=== PATIENT | female | born 2000 | race Caucasian/White ===

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

== ENCOUNTER 2021-06-14 15:08 | Emergency (ER) | payer OTHER, SELFPAY ==
[2021-06-14 15:19] VITALS: BP 126/73; PULSE 100; RESP 20; O2SAT 100
--- NOTE | 2021-06-14 16:05 | ED.URI ---
HPI - URI/Sore Throat General Chief Complaint: Upper Respiratory Infection Stated Complaint: Headache/Sore Throat Time Seen by Provider: 06/14/21 15:40 Source: patient, RN notes reviewed and old records reviewed Mode of arrival: ambulatory Limitations: no limitations History of Present Illness HPI Narrative: 20 year old female who presents to [facility] care with complaints of sore throat, headaches, sinus drainage, and cough for 10 days duration. Patient has been taking nose spray and has been taking Sudafed. Patient denies any known fever chills or sweats or any acute body aches. Patient states she has some aching pain to her throat rates pain as 5/10, states that her headache pain is 8/10 and throbbing. MD elicited complaint: sore throat and nasal congestion Related Data Allergies Allergy/AdvReac Type Severity Reaction Status Date / Time Sulfa (Sulfonamide Allergy Intermediate Hives Verified 06/14/21 15:29 Antibiotics) latex Allergy Mild RASH Verified 06/14/21 15:29 Review of Systems Review of Systems: CONSTITUTIONAL: Denies fever, chills, or sweats. EYES: Denies visual changes, redness, or discharge. ENT: Positive rhinorrhea, congestion, sore throat, no otalgia. CARDIOVASCULAR: Denies chest pain, palpitations, or edema. RESPIRATORY: positive for cough denies any dyspnea. GASTROINTESTINAL: Denies abdominal pain, nausea, vomiting, or diarrhea. GENITOURINARY: Denies dysuria or hematuria. SKIN: Denies rash or itching. MUSCULOSKELETAL: Denies back pain, joint pain, or myalgia. NEUROLOGIC: Positive for headache,no numbness, or weakness. PSYCHIATRIC: Denies anxiety or depression. All systems reviewed & are unremarkable except as noted in HPI and below PMFSH Past Medical History Medical History (Updated 06/15/21 @ 00:00 by Moses Wren) Acid reflux Anxiety and depression Asthma Surgical History Surgical History (Updated 08/12/20 @ 09:53 by Lyndsey Perez NP) History of appendectomy History of dilatation and curettage Family History Family History Father [id number] deficiency Depression Social History Social History (Updated 08/12/20 @ 10:07 by Lyndsey L. Chris, RN MATERNAL CHILD) Smoking status: Former smoker Tobacco type: cigarettes Additional smoking assessment comments: quit 03/2020 Alcohol intake: former Alcohol use details: social Substance use: never Additional occupation/education comments: [employer] Gender identity (if verbalized by the patient): Female Comments At time of signature, agree with nursing past medical, surgical, social and family history. There is no relevant family history pertinent to the presenting complaint Exam Narrative: GENERAL: Ill-appearing, well-nourished, and in no acute distress. HEAD: Normocephalic, atraumatic. EYES: PERRLA and EOMI. ENT: Nares mild redness, clear rhinorrhea no epistaxis. Mucous membranes moist.TM's normal with good light reflex, throat red with left tonsil swelling NECK: Supple. no lymphadenopathy CHEST: Clear to auscultation. No respiratory distress.SAO2 100% cough non productive HEART: Regular rate and rhythm. No murmur heard. Normal peripheral pulses. ABDOMEN: Soft, nontender, nondistended, normal active bowel sounds. EXTREMITIES: Normal range of motion. No edema. SKIN: Warm, dry, no rash. NEURO: No focal deficits. Alert and oriented x3. Course Course Level of Care: Express Care Visit Vital Signs Vital signs: Vital Signs Pulse Rate 100 06/14/21 15:19 Respiratory Rate 20 06/14/21 15:19 Blood Pressure 126/73 06/14/21 15:19 Pulse Oximetry 100 06/14/21 15:19 Pulse Rate 100 06/14/21 15:19 Respiratory Rate 20 06/14/21 15:19 Blood Pressure 126/73 06/14/21 15:19 Pulse Oximetry 100 06/14/21 15:19 MDM - URI/Sore Throat Differential Diagnosis Differential diagnosis: Likely upper respiratory infection, sinusitis, viral infection, pharyngiti
== END 2021-06-14 16:27 | disposition home or self-care (01) ==
PROVIDERS: Emergency Provider Registered Nurse
DX: J32.9 Chronic sinusitis, unspecified (principal); Z87.891 Personal history of nicotine dependence
CPT/HCPCS: 87081; 87880; 99213; G0463

== ENCOUNTER 2022-01-30 17:27 | Emergency (ER) | payer OTHER, SELFPAY ==
[2022-01-30 18:11] VITALS: BP 127/68; PULSE 100; RESP 16; TEMP 36.8; O2SAT 100
[2022-01-30 20:01] VITALS: BP 119/75; PULSE 85; RESP 16; TEMP 36.7; O2SAT 100
--- NOTE | 2022-01-30 20:21 | ED.HA ---
HPI - Headache General Chief Complaint: Headache Stated Complaint: headache Time Seen by Provider: 01/30/22 19:33 History of Present Illness HPI Narrative: 21-year-old female p/w headache starting this AM after she woke up, steadily worsening, worse with lights/sound, throbbing/pounding. She is also (preg test at her Dr's office) LMP 8 wk ago. Tried tylenol this AM which didn't help much. No focal numbness/weakness. Related Data Allergies Allergy/AdvReac Type Severity Reaction Status Date / Time Sulfa (Sulfonamide Allergy Intermediate Hives Verified 06/14/21 15:29 Antibiotics) latex Allergy Mild RASH Verified 06/14/21 15:29 Review of Systems Review of Systems: CONST: No fever. HEENT: No sore throat C/V: No chest pain RESP: No cough GI: No abdominal pain : No dysuria. M/S: No joint pain. SKIN: No rash. NEURO: [Headache without focal numbness or weakness] PSYCH: Anxious PMFSH Past Medical History Medical History Acid reflux Anxiety and depression Asthma Surgical History Surgical History History of appendectomy History of dilatation and curettage Family History Family History Father [id number] deficiency Depression Social History Social History Smoking status: Former smoker Tobacco type: cigarettes Additional smoking assessment comments: quit 03/2020 Alcohol intake: former Alcohol use details: social Substance use: never Additional occupation/education comments: [employer] Gender identity (if verbalized by the patient): Female Exam Narrative: EXAMINATION OF ORGAN SYSTEMS/BODY AREAS: Constitutional: Vital signs per nursing GENERAL: Tearful and crying HEAD: Normal with no signs of head trauma. EYES: EOMI, conjunctiva normal ENT: Hearing grossly intact LUNGS: Nonlabored breathing. HEART: [Regular rate and rhythm] ABD: No distention EXT: Normal range of motion SKIN: [No rashes or lesions.] NEURO: [Alert and oriented x 3. No focal sensory or strength deficits.] Ambulating with normal steady gait, CN II to XII intact. PSYCH: Tearful affect Course Vital Signs Vital signs: Vital Signs Temperature 98.2 F 01/30/22 18:11 Pulse Rate 100 01/30/22 18:11 Respiratory Rate 16 01/30/22 18:11 Blood Pressure 127/68 01/30/22 18:11 Pulse Oximetry 100 01/30/22 18:11 Oxygen Delivery Room Air 01/30/22 18:11 Temperature 98.0 F 01/30/22 20:01 Pulse Rate 85 01/30/22 20:01 Respiratory Rate 16 01/30/22 20:01 Blood Pressure 119/75 01/30/22 20:01 Pulse Oximetry 100 01/30/22 20:01 Oxygen Delivery Room Air 01/30/22 20:01 MDM - Headache MDM Narrative Medical decision making narrative: 21-year-old female presents to the emergency department for headache. Patient is hemodynamically stable. No focal neurological or cranial nerve deficits on exam. No meningeal signs. The headache was gradual in onset, it is not exertional and does not appear consistent with subarachnoid hemorrhage or intracranial bleeding. No trauma. She was concerned this may be preeclampsia however she is likely only 8 weeks this seems unlikely; BP is also normal here. Patient is given headache cocktail including Reglan, Benadryl, Tylenol.? On reevaluation, the patient feels significantly better with the headache nearly completely resolved. No neurological deficits. Patient is comfortable going home for outpatient follow-up with primary care physician and provided with strict return precautions, especially for worsening headaches, neck pain/stiffness, fever or weakness, numbness/tingling or persistent vomiting. Pulse oximetry interpretation: Not hypoxic. Discharge Plan Discharge Clinical Impression: Migraine Patient Disposition: Home, Self-Care Condition: Impro
[2022-01-30] MEDS: ACETAMINOPHEN 500 MG TABLET 1000 MG PO (20:26)
[2022-01-30] MEDS: diphenhydrAMINE HCl CAP 25 MG CAPSULE PO (20:27)
[2022-01-30] MEDS: METOCLOPRAMIDE HCL INJ 10 MG/2 ML VIAL IM (20:27)
[2022-01-30 21:22] VITALS: BP 118/60; PULSE 70; RESP 16; TEMP 36.8; O2SAT 100
== END 2022-01-30 21:22 | disposition home or self-care (01) ==
PROVIDERS: Emergency Provider Emergency Medicine; PCP Internal Medicine
DX: G43.909 Migraine, unspecified, not intractable, without status migrainosus (principal); K21.9 Gastro-esophageal reflux disease without esophagitis; J45.909 Unspecified asthma, uncomplicated; Z87.891 Personal history of nicotine dependence
CPT/HCPCS: 96372; 99283; A9270; J2765

== ENCOUNTER 2022-06-28 16:52 | Outpatient (RCR) | payer OTHER, SELFPAY ==
[2022-06-28] MEDS: RHO(D) IMMUNE GLOBULIN 300 MCG/2 ML SYRINGE IM (17:33)
== END 2022-09-24 23:59 | disposition home or self-care (01) ==
LOC: ANHLAB 16:52
PROVIDERS: PCP Internal Medicine; Visit Provider Obstetrics & Gynecology
DX: O36.0190 Maternal care for anti-D [Rh] antibodies, unspecified trimester, not applicable or unspecified (principal); Z3A.00 Weeks of gestation of pregnancy not specified
CPT/HCPCS: 36415; 85461; 86850; 86900; 86901; 90384; 96372; J2790

== ENCOUNTER 2022-08-16 16:25 | Observation (INO) | payer OTHER, SELFPAY ==
[2022-08-16 16:40] VITALS: BP 123/74; PULSE 103
[2022-08-16 16:45] VITALS: BP 131/71; PULSE 109
[2022-08-16 16:59] VITALS: BMI 32.5
--- NOTE | 2022-08-16 17:00 | LDADM ---
This patient, Karley Wasserman, was admitted to OB Post [facility] on 08/16/22 at 16:25. Plans for labor, pain management and were discussed with patient. Patient/family oriented to hospital policies and general routines including ID bracelet, bed and alarms, visiting hours, pain management, procedures, bathroom and other care routines, personal items, smoking policy, room service/diet and guest tray routines, infant security routines, and visiting hours. Patient/Family are encouraged to report perceived risks to care and to ask questions if they do not understand what they are told or what they should do. See OBIX for further documentation.
[2022-08-16 17:15] VITALS: BP 130/78; PULSE 113
[2022-08-16 17:20] LABS: Appearance Urine Clear (Clear); Bacteria Urine None Seen /hpf; Bilirubin Urine Negative (Negative); Blood Urine Negative (Negative); Color Urine Yellow (Yellow); Glucose Urine UA Negative (Negative); Ketones Urine Negative (Negative); Leukocyte Esterase Ur Trace LEU/UL (Negative); Nitrate Urine Negative (Negative); Non Pathogenic Casts 0-2; Protein Urine Negative (Negative); RBC Urine 0-2 /hpf (0-2); Specific Grav Ur 1.011 (1.001-1.035); Squamous Epithelial Cell Urine Few /hpf (Few); Urobilinogen Urine 0.2 mg/dL (<2.0); WBC Urine 0-5 /hpf; pH Urine 6.5 (5.0-9.0)
[2022-08-16 17:25] LABS: Add Urine Microscopic? YES
[2022-08-16 17:30] VITALS: BP 126/78; PULSE 112
--- NOTE | 2022-08-16 17:46 | PC.NURSE ---
Patient came in complaining of leaking fluid and contractions with lower back pain. Patient has not taken any medication for pain today. NST reactive, no contractions palpated or picked up by toco. UA results normal, and ROM + was negative. Called MD with results. Orders given for Tylenol and discharge home.
[2022-08-16] MEDS: ACETAMINOPHEN 500 MG TABLET 1000 MG PO (17:55)
--- NOTE | 2022-08-17 13:54 | P.PNOB_ITS ---
OB - Triage/Final Diagnosis Visit Information Reason for evaluation: threatened labor Comments/Additional reasons for admission: I have assessed the risk for this patient, Karley Wasserman, and determined that she would benefit from observation care. Evaluation Laboratory results: Laboratory Tests 08/16/22 16:55 Urine Color Yellow Urine Appearance Clear Urine pH 6.5 Ur Specific [place] 1.011 Urine Protein Negative Urine Glucose (UA) Negative Urine Ketones Negative Ur Blood (Man) Negative Urine Nitrate Negative Urine Bilirubin Negative Urine Urobilinogen 0.2 Leukocyte Esterase Rfl Trace H Urine RBC 0-2 Urine WBC 0-5 Ur Squamous Epith Cells Few Urine Bacteria None seen Urine Casts 0-2 Vital signs: Vital Signs - 24 hr 08/16/22 16:40 08/16/22 16:45 08/16/22 17:15 Pulse Rate 103 H 109 H 113 H Blood Pressure 123/74 131/71 130/78 Oxygen Delivery 08/16/22 17:30 08/16/22 16:59 Pulse Rate 112 H Blood Pressure 126/78 Oxygen Delivery Room Air
== END 2022-08-16 17:58 | disposition home or self-care (01) ==
LOC: ANHOBOP 16:56 → ANHOBPP 16:57
PROVIDERS: Admitting Provider Obstetrics & Gynecology; PCP Internal Medicine; Visit Provider Obstetrics & Gynecology
DX: O47.03 False labor before 37 completed weeks of gestation, third trimester (principal); Z3A.34 34 weeks gestation of pregnancy
CPT/HCPCS: 81001; 84112; A9270; G0378; G0379

== ENCOUNTER 2022-09-20 06:17 | Inpatient (IN) | payer OTHER, SELFPAY ==
[2022-09-20] VITALS (107 sets, daily range): BP systolic 98–163; BP diastolic 58–102; PULSE 54–126; RESP 16; TEMP 36.4–36.9; O2SAT 88–100; BMI 34.3
--- NOTE | 2022-09-20 07:03 | P.HP_ITS ---
H&P: HPI History of Present Illness Date/Time: 09/20/22 07:03 Chief Complaint: Term Narrative: this is a 22-year-old 3 para 1011. Her last menstrual period was 12 25, EDC is 09/27, confirmed by early ultrasound. She presents at 39 weeks gestation with positive group B strep for induction of labor. Her has otherwise been uncomplicated. She does smoke marijuana and that was discussed to stop early in the . [facility] Past Medical History Medical History Acid reflux Anxiety and depression Asthma Surgical History Surgical History History of appendectomy History of dilatation and curettage Family History Family History Father Oquky-[id number] deficiency Depression Social History Social History Smoking status: Former smoker Tobacco type: cigarettes Additional smoking assessment comments: quit 03/2020 Alcohol intake: former Alcohol use details: social Substance use: never Living arrangements: with family Occupation/Education: occupation Additional occupation/education comments: [employer] Gender identity (if verbalized by the patient): Female Meds Home Medications and Allergies Home Medications Medication Instructions Recorded Confirmed Type aspirin 81 mg capsule 81 mg PO DAILY 08/16/22 08/16/22 History venlafaxine 75 mg capsule,extended mg PO 08/16/22 History release 24 hr Allergies Allergy/AdvReac Type Severity Reaction Status Date / Time Sulfa (Sulfonamide Allergy Intermediate Hives Verified 08/16/22 17:10 Antibiotics) latex Allergy Mild RASH Verified 08/16/22 17:10 Exam Const: General: cooperative, healthy appearing and comfortable Nutritional Appearance: average body habitus Orientation/consciousness: oriented to person, oriented to place and oriented to time HENMT: Head: normal to inspection Resp: Effort & Inspection: normal respiratory effort Cardio: Rate: regular rate Rhythm: regular rhythm Heart sounds: S1 normal heart sound present and S2 normal heart sound present GI: Inspection: normal to inspection ( Gravid soft uterus) : External Female Exam: normal external appearance Speculum Exam - Vagina: normal appearance of the vagina Speculum Exam - Cervix: normal appearance of the cervix ( . Attempted a round. FHT is reassuring) Assessment and Plan Assessment and plan (1) Term : Code(s): Z34.90 - Encounter for supervision of normal , unspecified, unspecified trimester Status: Acute (2) Positive testing for group B Streptococcus: Code(s): B95.1 - Streptococcus, group B, as the cause of diseases classified elsewhere Status: Acute Plan medical induction of labor. Group B strep prophylaxis. Spontaneous vaginal delivery expected. She is an epidural candidate
--- NOTE | 2022-09-20 07:43 | PC.NURSE ---
arrives to Ob for elective IOL. Reports good movement, denies leaking of fluid or bleeding, contractions, falls.
[2022-09-20 07:56] LABS: Basophils Percent Auto 0.3 % (0.2-1.2); Eosinophils Absolute Auto 0.1 K/mm3 (0-0.3); Eosinophils Percent Auto 0.9 % (0-4.4); Hematocrit 28.1 % (37.0-47.0); Hemoglobin 8.6 g/dL (12.0-15.0); Immature Granulocyte Absolute 0.15 K/mm3 (0.00-0.031); Immature Granulocyte Percent A 1.1 % (0-0.5); Lymphocytes Percent Auto 17.9 % (18.3-44.2); Mean Corpuscular HGB Conc 30.6 g/dl (32-36); Mean Corpuscular Hemoglobin 25.3 pg (26-34); Mean Corpuscular Volume 82.6 fl (80-100); Mean Platelet Volume 9.7 fl (7.4-10.4); Monocytes Absolute Auto 0.7 K/mm3 (0.1-0.6); Monocytes Percent Auto 5.1 % (2.6-8.5); Neutrophils Absolute Auto 10.4 K/mm3 (1.3-6.7); Neutrophils Percent Auto 74.7 % (45.5-73.1); Platelet Count Result 369 k/mm3 (150-375); Red Cell Distribution Width 16.7 % (11.5-14.5); White Blood Count 13.9 K/mm3 (4.5-10.0)
[2022-09-20] MEDS: LACTATED RINGERS 1,000 ML 125 ML IV CONT ×3 (08:11→18:30)
[2022-09-20] MEDS: OXYTOCIN 30 UNITS/NS 500 ML 30 UNITS/500 ML BAG IV CONT (08:11)
[2022-09-20] MEDS: AMPICILLIN 2 GM/NS 100 ML 2 GM/100 ML BAG IVPB (08:14)
[2022-09-20 08:17] LABS: Amphetamine Screen Urine Negative (Negative); Barbiturate Screen Urine Negative (Negative); Benzodiazepines Screen Urine Negative (Negative); Cannabinoid Screen Urine Positive (Negative); Cocaine Screen Urine Negative (Negative); Methadone Screen Urine Negative (Negative); Opiate Screen Urine Negative (Negative); Phencyclidine Screen Urine Negative (Negative)
[2022-09-20 08:48] LABS: HIV 1/2 Ab P24 Ag Result Negative (Negative)
[2022-09-20 09:04] LABS: Rubella IgG Antibody 19.4 IU/ML
[2022-09-20 09:06] LABS: Hepatitis B Surface Antigen Negative (Negative)
[2022-09-20] MEDS: ACETAMINOPHEN 325 MG TABLET 650 MG PO ×2 (10:10→22:51)
[2022-09-20] MEDS: AMPICILLIN 1 GM/NS 50 ML 1 GM/50 ML BAG IVPB ×2 (11:34→16:28)
--- NOTE | 2022-09-20 12:06 | PM.OBPNLAB ---
Pain Control Date/time seen: 09/20/22 12:06 Pain control: tolerating well Pelvic Exam Dilation (cm): 2 Effacement (%): 50 station: -2 Amniotic membrane status: Leaking Contractions Monitor mode: Internal
[2022-09-20] MEDS: fentaNYL CITRATE INJ (*CRX) 100 MCG/2 ML VIAL 50 MCG IV PUSH ×2 (12:51→14:38)
--- NOTE | 2022-09-20 13:50 | WPDANESEPP ---
Anes - Eval Pre Procedure Procedure: Labor epidural Date/Time: 09/20/22 13:50 Surgeon: Maria Elena Barba Preop Diagnosis: Pain during labor Pre Op Diagnosis: Induction of Labor Patient Data Age: 22 Gender: F Height: 1.63 m Weight: 90.718 kg Last Vital Signs Temp 36.8 C 09/20/22 12:35 Pulse 83 09/20/22 13:37 BP 129/79 09/20/22 13:37 Pulse Ox 98 09/20/22 07:04 O2 Del Method Room Air 09/20/22 08:00 Allergies Allergy/AdvReac Type Severity Reaction Status Date / Time Sulfa (Sulfonamide Allergy Intermediate Hives Verified 08/16/22 17:10 Antibiotics) latex Allergy Mild RASH Verified 08/16/22 17:10 Home Medications Medication Instructions Recorded Confirmed Type aspirin 81 mg capsule 81 mg PO DAILY 08/16/22 09/20/22 History venlafaxine 75 mg capsule,extended 75 mg PO DAILY 08/16/22 09/20/22 History release 24 hr cetirizine 10 mg tablet 10 mg PO PRN PRN Allergy Symptoms 09/20/22 09/20/22 History Laboratory Tests 09/20/22 06:52 WBC 13.9 H K/mm3 (4.5-10.0) RBC 3.40 L M/mm3 (4.2-5.4) Hgb 8.6 L g/dL (12.0-15.0) Hct 28.1 L % (37.0-47.0) MCV 82.6 fl (80-100) MCH 25.3 L pg (26-34) MCHC 30.6 L g/dl (32-36) RDW 16.7 H % (11.5-14.5) Plt Count 369 k/mm3 (150-375) MPV 9.7 fl (7.4-10.4) Immature Gran % (Auto) 1.1 H % (0-0.5) Neut % (Auto) 74.7 H % (45.5-73.1) Lymph % (Auto) 17.9 L % (18.3-44.2) [place] % (Auto) 5.1 % (2.6-8.5) Eos % (Auto) 0.9 % (0-4.4) Baso % (Auto) 0.3 % (0.2-1.2) Lymph # (Auto) 2.50 K/mm3 (0.9-3.2) [place] # (Auto) 0.7 H K/mm3 (0.1-0.6) Eos # (Auto) 0.1 K/mm3 (0-0.3) Baso # (Auto) 0.0 K/mm3 (0.0-0.1) Abs Immat Gran (auto) 0.15 H K/mm3 (0.00-0.031) Absolute Neuts (auto) 10.4 H K/mm3 (1.3-6.7) Absolute Nucleated RBC 0.0 K/mm3 (0.0-0.012) Nucleated RBC % 0.0 % (0.0-0.2) Urine Opiates Screen Negative (Negative) Urine Methadone Screen Negative (Negative) Ur Barbiturates Screen Negative (Negative) Ur Phencyclidine Scrn Negative (Negative) Ur Amphetamine Screen Negative (Negative) U Benzodiazepines Scrn Negative (Negative) Urine Cocaine Screen Negative (Negative) U Cannabinoids Screen Positive A (Negative) RPR Pending Hep Bs Antigen Negative (Negative) HIV 1&2 Ab/P24 Ag 4thGn Negative (Negative) Rubella IgG Antibody 19.4 IU/ML (10 - ) Blood Type A Negative Antibody Screen Negative Patient hx anesthesia problems: none Family hx anesthesia problems: none Results Review: All pre-operative results and documents have been reviewed as part of the pre-operative evaluation. [facility] Past Medical History Medical History Acid reflux Anxiety and depression Asthma Surgical History Surgical History History of appendectomy History of dilatation and curettage Family History Family History Father Smmcb-[id number] deficiency Depression Social History Social History Smoking status: Heavy tobacco smoker Tobacco type: cigarettes Smokeless tobacco user: other Second hand tobacco smoke exposure: No Additional smoking assessment comments: vaping Alcohol intake: former Alcohol use details: social Substance use: current Other substance usage details: vaped Lack of Transportation: No Lack of Food: Never True Current Housing: I Have Housing Concerned About Future Housing: No Difficulty Paying Gas/Electric Bills: No Difficulty Paying for Meds: No Currently Unemployed: YES Education: High School Diploma/GED Difficulty w/ Childcare or Family Care: No Living arrangements: with family Occupa
--- NOTE | 2022-09-20 16:00 | PM.OBPNLAB ---
Pain Control Date/time seen: 09/20/22 16:00 Pain control: tolerating well and epidural Pelvic Exam Dilation (cm): 4 Effacement (%): 50 station: -1 Amniotic membrane status: Leaking Contractions Monitor mode: Internal
[2022-09-20] MEDS: METHYLERGONOVINE MALEATE 0.2 MG/ML VIAL IM (20:16)
--- NOTE | 2022-09-20 20:19 | PM.OBPRVD ---
OB - Delivery Note Procedure Delivery date: 09/20/22 Procedure: mil Events: Positive Group B Strep (GBS) Induction method: AROM Delivery monitor: External FHT and Internal Uterine Route of delivery: Episiotomy description: None Laceration Description: None Quantitative Blood Loss (ml): 260 Anesthesia type: Epidural Disposition: Floor [place] Baby Date of : 09/20/22 Time of : 20:03 Weeks of gestation at delivery: 39 gender: Female Weight (pounds): 6 Weight (ounces): 13 presentation: vertex position: Right Occiput Anterior Placenta delivery description: Spontaneous Cord Vessel Description: 3 Vessels and Clamped/Cut score one minute: 7 score five minutes: 9
--- NOTE | 2022-09-20 20:23 | PM.DS ---
DS: Admitting Diagnosis Discharge Date 09/22/2022 Admitting Diagnosis term /gestational hypertension/positive group B strep DS: Discharge Diagnosis Discharge Diagnosis (1) Positive testing for group B Streptococcus: Code(s): B95.1 - Streptococcus, group B, as the cause of diseases classified elsewhere Status: Acute (2) Term : Code(s): Z34.90 - Encounter for supervision of normal , unspecified, unspecified trimester Status: Acute DS: Summary Hospital Course Reason for hospitalization: patient was admitted for induction of labor. Hospital Course: Patient underwent successful spontaneous vaginal delivery on 09/20 22. She was adequately prophylaxed for group B strep. Her hospital course unremarkable. She remained afebrile. She was up, voiding without difficulty, ambulating, eating regular diet, and generally without complaints. Time Spent with Patient Time attestation: Total time spent providing and/or coordinating discharge services: Exam Const: General: cooperative, healthy appearing and comfortable Nutritional Appearance: average body habitus Orientation/consciousness: oriented to person, oriented to place and oriented to time HENMT: Head: normal to inspection Resp: Effort & Inspection: normal respiratory effort Cardio: Rate: regular rate Rhythm: regular rhythm Heart sounds: S1 normal heart sound present and S2 normal heart sound present GI: Inspection: normal to inspection ( Fundus firm below the umbilicus) DS: Data Data Completed and Pending Labs on day of discharge: Labs from last 24 hours 09/20/22 06:52 WBC 13.9 H RBC 3.40 L Hgb 8.6 L Hct 28.1 L MCV 82.6 MCH 25.3 L MCHC 30.6 L RDW 16.7 H Plt Count 369 MPV 9.7 Immature Gran % (Auto) 1.1 H Neut % (Auto) 74.7 H Lymph % (Auto) 17.9 L [place] % (Auto) 5.1 Eos % (Auto) 0.9 Baso % (Auto) 0.3 Lymph # (Auto) 2.50 [place] # (Auto) 0.7 H Eos # (Auto) 0.1 Baso # (Auto) 0.0 Abs Immat Gran (auto) 0.15 H Absolute Neuts (auto) 10.4 H Absolute Nucleated RBC 0.0 Nucleated RBC % 0.0 Urine Opiates Screen Negative Urine Methadone Screen Negative Ur Barbiturates Screen Negative Ur Phencyclidine Scrn Negative Ur Amphetamine Screen Negative U Benzodiazepines Scrn Negative Urine Cocaine Screen Negative U Cannabinoids Screen Positive A RPR Pending Hep Bs Antigen Negative HIV 1&2 Ab/P24 Ag 4thGn Negative Rubella IgG Antibody 19.4 Blood Type A Negative Antibody Screen Negative Discharge Plan Discharge Attending physician on discharge: Castro Mar Discharging Clinician: Castro Mar Patient Disposition: Home, Self-Care Activity: may shower, no straining and pelvic rest Diet: heart healthy Wound Care Instructions: follow printed instructions Patient Instructions: Antibiotic Form Stand Alone Forms: General Discharge Information Follow-up/Referrals: Castro Mar MD [Physician] - Discharge Medications: Continued venlafaxine 75 mg capsule,extended release 24hr 75 mg PO DAILY aspirin 81 mg Capsule 81 mg PO DAILY cetirizine 10 mg tablet 10 mg PO PRN PRN (Reason: Allergy Symptoms) Date of admission: 09/20/22 06:17 Primary Care Provider: Corby,Sam Cerna Admitting Provider: Castro Mar Attending physician on admission: Castro Mar Condition: Stable
[2022-09-20] MEDS: OXYTOCIN 30 UNITS/NS 500 ML 30 UNITS/500 ML BAG 125 UNITS IV CONT (20:34)
[2022-09-20] MEDS: ONDANSETRON INJ 4 MG/2 ML VIAL IV PUSH (21:37)
[2022-09-20] MEDS: IBUPROFEN 600 MG TABLET PO (22:52)
--- NOTE | 2022-09-20 23:12 | OBPPTRN ---
Patient transferred to post room #286 via wheelchair. Support person present. Oriented to unit, room, information board, rooming in, admission packet and security measures. Patient verbalizes understanding.
[2022-09-21 04:00] VITALS: BP 117/66; PULSE 80; RESP 16; TEMP 36.9; O2SAT 100
[2022-09-21 04:06] LABS: Hematocrit 29.1 % (37.0-47.0); Hemoglobin 8.9 g/dL (12.0-15.0)
[2022-09-21] MEDS: IBUPROFEN 600 MG TABLET PO ×3 (05:15→18:24)
[2022-09-21 07:50] VITALS: BP 111/63; PULSE 73; RESP 18; TEMP 36.8; O2SAT 98
--- NOTE | 2022-09-21 10:16 | WPDANLDPN2 ---
Anes-Prog Note L&D Date/Time: 09/21/22 10:16 Comfortable throughout: labor and delivery Neuraxial method: epidural Epidural/Spinal procedure site: clean & non-tender Neuro status: Neuro function grossly intact. Cardiovascular status: normal Respiratory status: normal Airway patency: baseline Mental status: baseline Post-Op hydration status: normal Vital Signs: Last Vital Signs Temp 36.8 C 09/21/22 07:50 Pulse 73 09/21/22 07:50 Resp 18 09/21/22 07:50 BP 111/63 09/21/22 07:50 Pulse Ox 98 09/21/22 07:50 O2 Del Method Room Air 09/21/22 04:00 Pain score (VAS): 2/10 I/O: Intake & Output 09/20/22 09/21/22 09/21/22 23:59 07:59 15:59 Intake Total 1000 Output Total 400 Balance 600 Post-procedural complaints: none Patient feedback: Patient satisfied with anesthetic care.
--- NOTE | 2022-09-21 10:27 | WPDANLDPN2 ---
Anes-Prog Note L&D Date/Time: 09/21/22 10:27 Comfortable throughout: labor and delivery Neuraxial method: epidural Epidural/Spinal procedure site: clean & non-tender Neuro status: Neuro function grossly intact. Cardiovascular status: normal Respiratory status: normal Airway patency: baseline Mental status: baseline Post-Op hydration status: normal Vital Signs: Last Vital Signs Temp 36.8 C 09/21/22 07:50 Pulse 73 09/21/22 07:50 Resp 18 09/21/22 07:50 BP 111/63 09/21/22 07:50 Pulse Ox 98 09/21/22 07:50 O2 Del Method Room Air 09/21/22 04:00 Pain score (VAS): 0 I/O: Intake & Output 09/20/22 09/21/22 09/21/22 23:59 07:59 15:59 Intake Total 1000 Output Total 400 Balance 600 Post-procedural complaints: none Patient feedback: Patient satisfied with anesthetic care.
[2022-09-21 11:02] LABS: Rapid Plasma Reagin Non-Reactive (NonReactive)
[2022-09-21] MEDS: MULTIVIT/MIN/PREN/FOL AC/IRON TABLET 1 TAB PO (11:31)
[2022-09-21] MEDS: DOCUSATE SODIUM 100 MG CAPSULE PO ×2 (11:31→16:21)
[2022-09-21] MEDS: TETANUS,DIPHTHERIA,AC PERTUSSIS ADULT (0.5 ML) BOOSTRIX IM (11:32)
[2022-09-21] MEDS: POLYSACCHARIDE IRON COMPLEX 150 MG CAPSULE PO ×2 (11:32→16:21)
[2022-09-21 12:10] VITALS: BP 129/82; PULSE 78; RESP 16; TEMP 36.6; O2SAT 97
[2022-09-21] MEDS: ACETAMINOPHEN 325 MG TABLET 650 MG PO (13:10)
[2022-09-21] MEDS: RHO(D) IMMUNE GLOBULIN 300 MCG/2 ML SYRINGE IM (13:46)
--- NOTE | 2022-09-21 14:23 | PC.NURSE ---
[id number] Introductions were made, then consulted with patient to assess needs related to . Mother led the conversation with her?plans to feed?her and the?experience so far. Mother works well with her infant with encouragement and education. Encouraged understanding of the benefits of skin to skin (demonstrating unwrapping infant and placing upright on her chest), stimulating with massage touch, changing positions to encourage wakefulness, how to watch for early feeding cues, responsive feeding, feeding on demand (aiming for 8-12 times in 24 hours, about every 2-3 hours), milk production, building/maintaining a milk supply, duration of feeding, signs of adequate intake/output and how to record on the feeding sheet. Reviewed positioning and ear, shoulder, hip alignment, supporting the breast to facilitate a deep latch, asymmetrical latch (off-center), leading with the chin with a big, open, wide gape and body close to mother. Nipple shield provided after delivery for the earlier feedings to mother due to infant not latching. Reviewed good handwashing, cleaning the nipple shield and application. Discussed with mom the nipple shield precautions, possible complications associated with the risks and benefits. Reviewed practicing with a nipple shield, then without and how to protect the milk supply and production. Reviewed the importance of hand expression, nipple stimulation and initiating a pumping schedule if continues to nurse with the shield. Several attempts were made to stimulate for wakefulness, [id number], massage touch, position change and latching with, then without the nipple shield. Infant latched optimally to the right breast in football position. Education given to mother of how to visualize suck/swallow demonstrating drinking at the breast. was able to maintain latch without discomfort to mother. Nipple care reviewed with optimal latch and good positioning. Reviewed good handwashing when or touching the breast/nipples to prevent infection. Resources used to facilitate learning were used with the tool. Mother voiced understanding of skin to skin, stimulating with massage touch, responsive feedings, hand expressed colostrum, talking to to encourage if it has been 2 -2.5 hours since the start of the last , to call if does not latch, or if there is discomfort with . Mother voiced understanding of information, demonstrated learning and will call if there is a request for assistance.
[2022-09-21 20:00] VITALS: BP 112/65; PULSE 81; RESP 16; TEMP 36.8; O2SAT 100
--- NOTE | 2022-09-22 06:35 | PM.OBPNVD ---
OB - PN: Subj Subjective Date/time seen: 09/22/22 06:35 Patient comments: no complaints and pain well controlled baby status: doing well OB - PN: Obj Data Labs 09/21/22 03:03 Labs: Laboratory Results - last 24 hr 09/20/22 09/21/22 06:52 03:03 RPR Non-reactive Blood Type A Negative Antibody Screen TNP Screen Negative Baby's Blood Type A pos Baby's ДМИТРИЙ Negative Doses of RhIg Required 1 OB - PN A/P Plan day: 2 Plan: routine care, discharge home and follow up 6 weeks Time Spent With Patient Time: Total time spent is greater than 50% in coordination of care (as documented) at patient's floor/unit and/or counseling patient: Time with patient: less than 15 minutes Exam Const: General: cooperative, healthy appearing and comfortable Nutritional Appearance: average body habitus Orientation/consciousness: oriented to person, oriented to place and oriented to time HENMT: Head: normal to inspection Resp: Effort & Inspection: normal respiratory effort Cardio: Rate: regular rate Rhythm: regular rhythm Heart sounds: S1 normal heart sound present and S2 normal heart sound present GI: Inspection: normal to inspection
[2022-09-22 09:00] VITALS: BP 127/95; PULSE 78; RESP 16; TEMP 36.7
[2022-09-22] MEDS: POLYSACCHARIDE IRON COMPLEX 150 MG CAPSULE PO (09:57)
[2022-09-22] MEDS: DOCUSATE SODIUM 100 MG CAPSULE PO (09:57)
[2022-09-22] MEDS: MULTIVIT/MIN/PREN/FOL AC/IRON TABLET 1 TAB PO (09:57)
[2022-09-24 10:35] VITALS: BP 127/83; PULSE 84; RESP 18; TEMP 37.1; O2SAT 99
== END 2022-09-22 12:15 | disposition home or self-care (01) | DRG 560 ==
LOC: ANHLDR 06:26 → ANHOB2 23:14
PROVIDERS: Admitting Provider Obstetrics & Gynecology; PCP Internal Medicine; Visit Provider Obstetrics & Gynecology
DX: O99.824 Streptococcus B carrier state complicating childbirth (principal); Z37.0 Single live birth; Z3A.39 39 weeks gestation of pregnancy
CPT/HCPCS: 36415; 80307; 85014; 85018; 85025; 85461; 86592; 86703; 86762; 86850; 86900; 86901; 87340; 90384; 90715; A9270; G0432; J0290; J2210; J2405; J2590; J2790; J2795; J3010; J7120

== ENCOUNTER 2022-12-06 13:06 | Emergency (ER) | payer OTHER, SELFPAY ==
[2022-12-06 13:22] VITALS: BP 129/76; PULSE 92; RESP 18; TEMP 36.3; O2SAT 100
--- NOTE | 2022-12-06 14:16 | ED.SKABFB ---
HPI - Skin/Abscess/Foreign Bdy General Chief complaint: Skin/Abscess/Foreign Body Stated complaint: cyst inside right leg Time Seen by Provider: 12/06/22 14:16 Source: patient, RN notes reviewed and old records reviewed Mode of arrival: ambulatory Limitations: no limitations History of Present Illness HPI narrative: 22-year-old female presents to the [facility] with complaints of an abscess to the right inner upper thigh. States she also has some on her buttock. Was diagnosed with hidradenitis suppurativa during . States that she gave in September. Has not followed up for these lesions. Related Data Allergies Allergy/AdvReac Type Severity Reaction Status Date / Time Sulfa (Sulfonamide Allergy Intermediate Hives Verified 08/16/22 17:10 Antibiotics) latex Allergy Mild RASH Verified 08/16/22 17:10 Review of Systems Review of Systems: All systems reviewed & are unremarkable except as noted in HPI and below Constitutional: Constitutional: Reports no additional constitutional complaints Eyes: Eyes: Reports no additional eye complaints ENT: Reports system reviewed and no additional complaints, except as documented Cardiovascular: Cardiovascular: Reports no additional cardiovascular complaints, Denies chest pain and Denies dyspnea Respiratory: Respiratory: Reports no additional respiratory complaints, Denies chest congestion, Denies cough and Denies dyspnea Gastrointestinal: Gastrointestinal: Reports no additional gastrointestinal complaints, Denies abdominal pain, Denies nausea and Denies vomiting Musculoskeletal: Musculoskeletal: Reports no additional musculoskeletal complaints Integumentary/Breasts: Skin/Breast: Reports as per HPI, Reports erythema, Reports skin pain, Reports skin swelling and Reports sores Neurologic: Reports system reviewed and no additional complaints, except as documented Psychiatric: Psychiatric: Reports no additional psychiatric complaints Allergic/Immunologic: Allergic/Immunologic: Reports no additional allergic/immunologic complaints [facility] Past Medical History Medical History Acid reflux Anxiety and depression Asthma Surgical History Surgical History History of appendectomy History of dilatation and curettage Family History Family History Father Yradh-1-quejljwxgzl deficiency Depression Social History Social History Smoking status: Heavy tobacco smoker Tobacco type: cigarettes Smokeless tobacco user: other Second hand tobacco smoke exposure: No Additional smoking assessment comments: vaping Alcohol intake: former Alcohol use details: social Substance use: current Other substance usage details: vaped Lack of Transportation: No Lack of Food: Never True Current Housing: I Have Housing Concerned About Future Housing: No Difficulty Paying Gas/Electric Bills: No Difficulty Paying for Meds: No Currently Unemployed: YES Education: High School Diploma/GED Difficulty w/ Childcare or Family Care: No Living arrangements: with family Occupation/Education: occupation Additional occupation/education comments: paxton Gender identity (if verbalized by the patient): Female Spiritual care concerns: No Comments At the time of my signature, I reviewed and agree with the nursing past medical, surgical, social, and family history. There is no relevant family history pertinent to the patient complaint. Exam Const: General: cooperative, healthy appearing, comfortable, no acute distress, well developed, alert and well nourished Nutritional Appearance: well nourished and obese Orientation/consciousness: patient oriented x3 Limitations: no limitations HENMT: Head: normal to inspection Ears: hearing grossly normal bilateral
== END 2022-12-06 15:04 | disposition home or self-care (01) ==
PROVIDERS: Emergency Provider Nurse Practitioner; PCP Internal Medicine
DX: L02.415 Cutaneous abscess of right lower limb (principal); L03.115 Cellulitis of right lower limb; F17.210 Nicotine dependence, cigarettes, uncomplicated; F17.290 Nicotine dependence, other tobacco product, uncomplicated; K21.9 Gastro-esophageal reflux disease without esophagitis; J45.909 Unspecified asthma, uncomplicated
CPT/HCPCS: 10060; 81025; 87070; 87075; 87076; 87205; 99213; G0463

== ENCOUNTER 2024-08-24 21:00 | Emergency (ER) | payer OTHER, SELFPAY ==
--- NOTE | ~2024-08-24 | XR_ITS ---
EXAMINATION: XR chest 2V Exam Date/Time: 08/24/2024 21:37 CDT HISTORY: Palpitations Comparison: None. RESULT: Lines, tubes, and devices: None. Lungs and pleura: Clear. Cardiomediastinal silhouette: Normal. Other: No acute osseous or upper abdominal finding. IMPRESSION: No acute cardiopulmonary process. Reviewed, dictated and finalized at location K.
--- NOTE | 2024-08-24 21:01 | ECG_ITS ---
Test Date: 2024-08-24 21:13:02 Measurements Intervals [place] Rate: 102 P: 52 PA: 104 QRS: 4 QRSD: 91 T: 29 QT: 327 QTc: 426 Interpretive Statements SINUS TACHYCARDIA WITH SHORT PA INTERVAL OTHERWISE NORMAL ECG No previous ECG available for comparison Electronically Signed On 08-25-2024 10:09:27 CDT by John Ribeiro M.D.
--- OUTSIDE RECORDS SUMMARY | 2024-08-24 21:03 | XMS_ITS | Clinical Summary ---
Author Organization [facility] Address [address] [place] [address] Phone Care Team Providers Care Bi Technical Lead Name Role Phone Sam Tavarez MD Primary Care Provider [phone] Allergies Active Allergy Reactions Criticality Noted Date Comments Latex Rash 07/12/2021 Sulfa Antibiotics Unknown 07/12/2021 Medications traZODone (DESYREL) 50 MG Tablet Take 0.5 Tablets by mouth nightly. 15 Tablet 2 08/05/2023 Active buPROPion (WELLBUTRIN) 150 MG XL tablet TAKE 1 TABLET BY MOUTH EVERY DAY IN THE MORNING 30 Tablet 09/20/2023 Active ondansetron (ZOFRAN-ODT) 4 MG TABLET DISPERSIBLE Take 1 Tablet by mouth every 8 hours as needed for Nausea - 1st line. 10 Tablet 04/15/2024 Active Active Problems Problem Noted Date Diagnosed Date Irritable bowel syndrome with diarrhea Primary insomnia 08/05/2023 Recurrent boils 08/05/2023 Dysthymia 08/05/2023 Immunizations Immunization Administration Dates Next Due Td Vaccine (preservative free) 04/15/2024 Family History Medical History Relation Name Comments No Known Problems Father No Known Problems Mother No Known Problems Sister 1 No Known Problems Sister 2 Relation Name Status Comments Father Alive Mother Alive Sister 1 Alive Sister 2 Alive Social History Tobacco Use Types Packs/Day Years Used Date Smoking Tobacco: Never Passive Smoke Exposure: Never Smokeless Tobacco: Never Tobacco Cessation:Counseling Given: No Alcohol Use Standard Drinks/Week Comments Never 0 (1 standard drink = 0.6 oz pur e alcohol) [facility] Utilities Answer Date Recorded In the past 12 months has e electric, gas, oil, or water company threatened to shut off services in your home? Patient declined 07/24/2023 Social Connection and Isolation Panel Answer Date Recorded In a typical week, how many times do you talk on the phone with family, friends, or neighbors? More than three times a week 07/24/2023 How often do you get togethe r with friends or relatives? Twice a week 07/24/2023 How often do you attend chur ch or latter day services? 1 to 4 times per year 07/24/2023 Do you belong to any clubs o r organizations such as voodoo groups, unions, fraternal or athletic groups, or school groups? No 07/24/2023 How often do you attend meet ings of the clubs or organizations you belong to? Patient declined 07/24/2023 Are you , , di vorced, , never , or living with a partner? Never 07/24/2023 AUDIT-C Answer Date Recorded Q1: How often do you have a drink containing alc ohol? Monthly or less 07/24/2023 Q2: How many drinks containi ng alcohol do you have on a typical day when you are drinking? 3 or 4 07/24/2023 Q3: How often do you have si x or more drinks on one occasion? Never 07/24/2023 Overall Financial Resource Strain (CARDIA) Answe r Date Recorded How hard is it for you to pa y for the very basics like food, housing, medical care, and heating? Not very hard 07/24/2023 PHQ-2 Answer Date Recorded Total Score - Questions 1-9 0 01/11 [facility] of Occupat ional Health - Occupational Stress Questionnaire Answer Date Recorded Do you feel stress - tense, restless, nervous, or anxious, or unable to sleep at night because your mind is troubled all the time - these days? To some extent 07/24/2023 Exercise Vital Sign Answer Date Recorde d On average, how many days pe r week do you engage in moderate to strenuous exercise (like a brisk walk)? 5 days 07/24/2023 On average, how many minutes do you engage in exercise at this level? 60 min 07/24/2023 Hunger Vital Sign Answer Date Recorded Within the past 12 months, y ou worried that your food would run out before you got the money to buy more. Never true 07/24/19 Within the past 12 months, t he food you bought just didn't last and you didn't have money to get more. Never true 07/24/2023 PRAPARE - Transportation Answer Date Re corded In the past 12 months, has l ack of transportation kept you from medical appointments or from getting medications? Patient declined 07/24/2023 In the past 12 months, has l ack of transportation kept you from meetings, work, or from getting things needed for daily living? Yes 07/24/2023 Housing Stability Vital Sign Answer Rashard e Recorded In the last 12 months, was t here a time when you were not able to pay the mortgage or rent on time? Patient declined 07/24/19 In the past 12 months, how m any times have you moved where you were living? 2 07/24/2023 At any time in the past 12 m [facility], were you homeless or living in a prison (including now)? No 07/24/2023 Sexually Active Control Partners Comments Yes Comments Unknown Sex and Gender Information Value Date Recorded Sex Assigned at Not on file Legal Sex Female 11:00 AM CDT Gender Identity Not on file Sexual Orientation Not on file Last Filed Vital Signs Vital Sign Reading Time Taken Comments Blood Pressure 120/65 04/15/2024 1:32 PM HARP REGULATOR Pulse 82 04/15/2024 1:32 PM HARP REGULATOR Temperature 37.2 C (99 F) 04/15/2024 1:32 PM HARP REGULATOR Respiratory Rate 16 04/15/2024 1:32 PM HARP REGULATOR Oxygen Saturation 100% 04/15/2024 1:32 PM HARP REGULATOR Inhaled Oxygen Concentration - - Weight 81.6 kg (180 lb) 04/15/2024 12:17 PM HARP REGULATOR Height 165.1 cm (5' 5) 04/15/2024 12:17 PM HARP REGULATOR Body Mass Index 29.95 04/15/2024 12:17 PM HARP REGULATOR Plan of Treatment Health Maintenance Due Date Last Done Comments Hepatitis C Virus (HCV) Screening 2001 Meningococcal B Immunization (1 of 2 - Standard) 2017 Pap Smear 2022 SARS-COV-2 Immunization ( season) 2023 Influenza Immunization (#1) 10/12/202403/2017, 12/20/2016, 11/24/2015, Additional history exists Respiratory Syncytial Virus (RSV) Immunization (Adult) (1 - 1-dose 75+ series) 2076 Hepatitis B Immunization Completed 003, 2001, 2001 Pneumococcal Immunization Combined Aged Out 06/23/2002, 01/05/2002, 2001, Additional history exists No longer eligible based on patient's age to complete this topic Hepatitis A Immunization Discontinued 007, 05/08/2006, 06/29/2005, Additional history exists Measles Mumps Rubella (MMR) Immunization Discontinued 05/24/2006, 05/24/2006, 06/23/2002 Polio (IPV) Immunization Discontinued 007, 01/06/2003, 01/05/2002, Additional history exists Varicella Immunization Discontinued 7, 05/24/2006, 06/29/2005 Human Papillomavirus (HPV) Immunization Completed 03/12/2013, 10/31/2012, 09/05/2012 Meningococcal Immunization (ACWY) Completed 09/30/2017, 09/05/2012 TdaP Immunization Completed 09/21/2022, , 09/05/2012 DTaP/Tdap/Td Immunization Discontinued 2024, 09/21/2022, 12/26/2020, Additional history exists Rotavirus Immunization Aged Out No lo nger eligible based on patient's age to complete this topic Insurance MEDICAID [facility] MEDICAID [facility] [employer] Care Teams Bi Technical Lead Relationship Specialty Start Date End Date Sam Tavarez MD [address] [place] [address] PCP - General Internal Medicine 03/07/22
--- OUTSIDE RECORDS SUMMARY | 2024-08-24 21:03 | XMS_ITS | Clinical Summary ---
Author Organization [facility] Address [address] [place] [address] Care Team Providers Care Street Photographer Name Role Phone Sam Tavarez MD Primary Care Provider [phone] Allergies Active Allergy Reactions Criticality Noted Date Comments Latex Rash Medium 02/28/2011 Mom has the latex allergy Sulfa (Sulfonamide Antibiotics) Hives,Rash Medium 10/19/2020 Medications vit [id number]-dh a 27mg iron- 800 mcg-250 mg capsule Take by mouth Active pyridoxine (VITAMIN B-6) 50 mg tablet Take 1 tablet (50 mg total) by mouth daily Active aspirin 81 mg chewable tablet Take 1 tablet (81 mg total) by mouth daily Active Active Problems Problem Noted Date Diagnosed Date GBS bacteriuria 04/24/2022 Supervision of other normal , antepartu m 03/23/2022 History of pre-eclampsia 03/23/2022 Migraine with aura and witho ut status migrainosus, not intractable 09/04/2021 Anxiety disorder 09/15/2020 Immunizations Immunization Administration Dates Next Due Tdap 12/26/2020 Surgical History Surgery Date Site/Laterality Comments UPPER GASTROINTESTINAL ENDOSCOPY 02/11/2018 - 02/10/2019 DILATION AND CURETTAGE OF UTERUS APPENDECTOMY 02/11/2007 - 02/11/2008 Medical History Medical History Date Comments Anxiety Asthma No inhaler use f or greater then 1 year Hip dysplasia Snapping hip syndrome Depression Pre-eclampsia Family History Medical History Relation Name Comments Diabetes Father Heart disease Maternal Grandfather Hypertension Maternal Grandfather Breast cancer Neg Hx Colon cancer Neg Hx Ovarian cancer Neg Hx Uterine cancer Neg Hx Relation Name Status Comments Father Alive Maternal Grandfather Mother Alive Social History Tobacco Use Types Packs/Day Years Used Date Smoking Tobacco: Former Cigarettes Smokeless Tobacco: Never Tobacco Cessation:Counseling Given: Not Answered Alcohol Use Standard Drinks/Week Comments Not Currently 0 (1 standard drink = 0.6 oz pur e alcohol) Social Connection and Isolat ion Panel [NHANES] Answer Date Recorded In a typical week, how many times do you talk on the phone with family, friends, or neighbors? More than three times a week 06/07/2022 How often do you get togethe r with friends or relatives? More than three times a week 06/07/2022 How often do you attend chur ch or roman catholic services? Never 06/07/2022 Do you belong to any clubs o r organizations such as alevism groups, unions, fraternal or athletic groups, or school groups? No 06/07/2022 How often do you attend meet ings of the clubs or organizations you belong to? Never 06/07/2022 Marital Status Not on file 06/07/2022 AUDIT-C Answer Date Recorded Q1: How often do you have a drink containing alcohol? Never 06/07/2022 Q2: How many drinks containi ng alcohol do you have on a typical day when you are drinking? Patient does not drink Q3: How often do you have si x or more drinks on one occasion? Never 06/07/2022 Overall Financial Resource Strain (CARDIA) Answe r Date Recorded How hard is it for you to pa y for the very basics like food, housing, medical care, and heating? Not very hard 06/07/2022 PHQ-2 Answer Date Recorded PHQ-2 Total Score (If total score is 3 or more points, staff should administer the PHQ-9) 2 06/07/2022 [facility] of Occupat ional Health - Occupational Stress Questionnaire Answer Date Recorded Do you feel stress - tense, restless, nervous, or anxious, or unable to sleep at night because your mind is troubled all the time - these days? Very much 06/07/2022 Exercise Vital Sign Answer Date Recorde d On average, how many days pe r week do you engage in moderate to strenuous exercise (like a brisk walk)? 3 days 06/07/2022 On average, how many minutes do you engage in exercise at this level? 30 min 06/07/2022 Hunger Vital Sign Answer Date Recorded Within the past 12 months, y ou worried that your food would run out before you got the money to buy more. Never true 06/08/19 23 Within the past 12 months, t he food you bought just didn't last and you didn't have money to get more. Never true 06/07/2022 PRAPARE - Transportation Answer Date Re corded In the past 12 months, has l ack of transportation kept you from medical appointments or from getting medications? No 05/13 In the past 12 months, has l ack of transportation kept you from meetings, work, or from getting things needed for daily living? No 06/07/2022 Housing Stability Vital Sign Answer Rashard e Recorded In the last 12 months, was t here a time when you were not able to pay the mortgage or rent on time? No 06/07/2022 In the last 12 months, how many places have you lived? 4 06/07/2022 In the last 12 months, was t here a time when you did not have a steady place to sleep or slept in a care home (including now)? No 06/07/2022 [place] Depression Scale Answer Date Recorded [place] Depression Scale Total 16 04/13/2021 The thought of harming myself has occurred to me . Never 04/13/2021 Personal Safety Answer Date Recorded Getting School Help Needed Not on file 08/12 Comments No Sex and Gender Information Value Date Recorded Sex Assigned at Not on file Legal Sex Female 6:53 PM FASHION DESIGN PROFESSOR Gender Identity Not on file Sexual Orientation Not on file Obstetrics History Para Term AB IAB SAB Ectopic Multiple Livin g Live Births 3 1 1 1 1 0 1 1 Date Outcome GA Total Labor Labor/2nd/3rd Weight Sex Type Anes PTL Sheila A1 A5 Name Clin 2019 SAB D&C 2020 Term 39w 6d 12h 32m 11h 07m/1h 21m/0h 04m 3.29 kg (7 lb 4.1 oz) M Vag-S pont Epidur al N Livin g 6 8 LIVIN GRABIELON ,WILLARDL Spenser Dennison MD Complications:Pre eclampsia Delivery Location:[facility] Main C ampus ([facility]) Last Filed Vital Signs Vital Sign Reading Time Taken Comments Blood Pressure 124/64 07/25/2022 11:45 AM CDT Pulse 109 07/25/2022 11:45 AM CDT Temperature 36.3 C (97.4 F) 07/25/2022 11:45 AM CDT Respiratory Rate 16 07/25/2022 11:45 AM CDT Oxygen Saturation 97% 07/25/2022 11:45 AM CDT Inhaled Oxygen Concentration - - Weight 83.9 kg (185 lb) 07/25/2022 11:45 AM CDT Height 162.6 cm (5' 4) 07/25/2022 11:45 AM CDT Body Mass Index 31.76 07/25/2022 11:45 AM CDT Plan of Treatment Health Maintenance Due Date Last Done Comments Cervical Cancer Screening 2001 Meningococcal B Vaccine (1 o f 2 - Standard) 2017 Regular Well Visit/Exam 18-64 04/13/2022 04/13/2021 Chlamydia and Gonorrhea (GC/ CT) Screening 03/23/2023 03/23/2022, 09/04/2021, 05/03/2021 Depression Screening 06/08/2023 06/07/2022, 06/07/2022, 04/13/2021 Influenza Vaccine (#1) 2024 8, 12/20/2016, 11/24/2015, Additional history exists DTaP/Tdap/Td Vaccine (8 - Td or Tdap) 12/26/2030 12/26/2020, 09/05/2012, 05/24/2006, Additional history exists Hepatitis B Screening Completed 03/27/2002 , 2001, 2001 Pneumococcal vaccine <65 Completed 003, 01/05/2002, 2001, Additional history exists Varicella Vaccines Completed 05/24/2006, 0 05/24/2006, 06/29/2005, Additional history exists HPV Vaccines Completed 03/12/2013, 10/13, 09/05/2012 Hepatitis C Screening Completed 03/23/2022, 022 Procedures Procedure Name Priority Date/Time Associated Diagnosis Comments HEPATITIS C ANTIBODY Routine 03/23/2022 11:32 AM FASHION DESIGN PROFESSOR Encounter for supervision of other normal in first trimester N. GONORRHOEAE/C. TRACHOMATIS AMPLIFICATION Routine 03/23/2022 11:14 AM FASHION DESIGN PROFESSOR Encounter for supervision of other normal in first trimester Screening for STD (sexually transmitted disease) from Last 3 Months or Most Recently Relevant to Health Maintenance Results * Hepatitis C antibody (03/23/2022 11:32 AM FASHION DESIGN PROFESSOR) Hep C Ab Nonreactive Nonreactive DOMO FRAZIER Comment: Interpretive Data Nonreactive: Antibodies to HCV not detected. Does NOT exclude the possibility of recent exposure to HCV. Equivocal: Equivocal for HCV antibodies. Supplemental molecular testing will be automatically performed to determine infection status in accordance with current CDC screening recommendations. Reactive: Positive for HCV antibodies. This may represent current or past HCV infection. Supplemental molecular testing will be automatically performed to determine current infection status in accordance with current CDC screening recommendations. Interpretive data was last revised on 2019. Blood 03/23/2022 11:3 2 AM FASHION DESIGN PROFESSOR 03/23/2022 3:36 PM FASHION DESIGN PROFESSOR us Kiki RODRIGUEZ LAB MICROBIOLOGY - GENERAL OR DERABLES Final Result DOMO FRAZIER [id number] [facility] Department [place] [address] * N. gonorrhoeae/C. trachomatis Amplification Vaginal (03/23/2022 11:14 AM FASHION DESIGN PROFESSOR) Pathologist [facility] C. trachomatis Not Detected Not Detected DOMO FRAZIER Comment:Testing performed by : [address] [address] N. gonorrhoeae Not Detected Not Detected DOMO FRAZIER Comment: Interpretive Data Testing performed by the [facility]. This assay detects Chlamydia trachomatis and Neisseria gonorrhoeae by nucleic acid amplification testing (NAAT). This test is approved by the [place] Food and Drug Administration and the performance characteristics have been verified by the laboratory. The performance characteristics of this test have not been evaluated in individuals less than 14 years of age. Current Interpretive Data was last revised on 2019. Testing performed by: [address], [place]., [address] Vaginal (None) 03/23/2022 11 :14 AM FASHION DESIGN PROFESSOR 03/23/2022 2:02 PM FASHION DESIGN PROFESSOR Kiki Roberto CNM LAB MICROBIOLOGY - GENERAL OR DERABLES Final Result Performing Organization Address City/State/[facility] Co pr Phone Number DOMO [address] [facility] Department [place] [address] from Last 3 Months or Most Recently Relevant to Health Maintenance Insurance [facility] [employer] BETTER TH [place] Advance Directives For more information, please contact: [phone] * Full Code (Latest Code Status on File) Date Activated Date Inactivated Comments 12/25/2020 12:56 PM 12/28/2020 7:47 PM * Full Code Date Activated Date Inactivated Comments 12/25/2020 12:56 PM 12/25/2020 12:56 PM * Full Code Date Activated Date Inactivated Comments 12/25/2020 12:23 PM 12/25/2020 12:56 PM * Full Code Date Activated Date Inactivated Comments 12/19/2020 7:24 PM 12/22/2020 12:10 PM Full CPR i n case of cardiopulmonary arrest Care Teams Street Photographer Relationship Specialty Start Date End Date Sam Tavarez MD [address] [place] [address] PCP - General Internal Medicine 01/04/22
--- OUTSIDE RECORDS SUMMARY | 2024-08-24 21:03 | XMS_ITS | Clinical Summary ---
Author Organization [facility] Address [address] [place] [address] Care Team Providers Care Property Portfolio Officer Name Role Phone Loco Cardoza DO Primary Care Provider Source Comments [facility],non-owned Affiliates and Associated Physician Practices is amultiple site organization consisting of ambulatory clinics and hospital sitesin [place], [place], [place] and [place]. This disclosure is being madepursuant to the Care Everywhere program and may not contain all information available regarding this patient. Last updated 17.[facility] Allergies Active Allergy Reactions Criticality Noted Date Comments Latex Rash Medium 02/28/2011 Mom has the latex allergy Medications * Be aware that medications may not be up to date on this document. Alwaysverify current medications with the patient. albuterol HFA (PROVENTIL;VENT OCTAVIANO;PROAIR) 108 (90 BASE) MCG/ACT inhaler Inhale 2 Puffs by mouth every 4 hours as needed for Wheezing or Cough OK TO SUBSTITUTE ANY BRAND. 1 Inhaler 0 6 Active albuterol HFA (PROVENTIL;VENT OCTAVIANO;PROAIR) 108 (90 BASE) MCG/ACT inhaler Inhale 2 puffs by mouth 6 Active escitalopram (LEXAPRO) 10 MG tablet TAKE 1 TABLET BY MOUTH ONCE DAILY 30 tablet 9 Active Active Problems Problem Noted Date Diagnosed Date Depression with anxiety 08/11/2018 Mild intermittent asthma without complication Acne vulgaris 07/19/2016 Overview (08/21/2016): premenarchal onset age 13; tretinoin 0.025%, Clindagel, BP wash x 6 mo in past with improvement 07/19/16 mod inflammatory>comedonal with violaceous discoloration off tx; check urine hCG; start OCP, restart tretinoin 0.025%, erythro samara, BP wash daily Gastroesophageal reflux 09/08/2012 BMI (body mass index), pedia tric, 85% to less than 95% for age 0709/08/2012 Resolved Problems Problem Noted Date Diagnosed Date Resolved Date Insurance coverage problems 07/19/2016 09/30/2017 Overview (08/21/2016): [place] with very limited acne formulary and step edit requirements 07/19/16 discussed limitations Sunburn, blistering 07/19/2016 10/01/19 18 Overview (07/19/2016): FST 1 07/19/16 discussed importance of broad spectrum sunscreen use Non-intractable vomiting with nausea 09/30/2017 Immunizations Immunization Administration Dates Next Due DTaP VACCINE IM (6wk-6yrs) 05/24/2006,,01/05/2002,10/20,2001 FLU VACCINE TRI IIV3 SPLIT P F IM (FLUVIRIN) 10/31/2012 HEP A PEDS 2 DOSE 05/08/2006,06/29/2005 HEP B VACCINE, PED/ADOL 03/27/2002,2001, HIB BOOSTER 01/06/2003, 2,2001,08/18 Human Papilloma Virus Toma valent Vaccine 03/12/2013,10/31/2012,09/05/2012 INFLUENZA A [id number] VACCINE 12/31/2008 INFLUENZA VACCINE, QUADR. (F LUZONE; FLULAVAL; FLUARIX; AFLURIA QUADRIVALENT; 6MO+), 0.5 ML (IIV4) 12/13/2017,12/20/2016,11/24/2015,12/24 Influenza Nasal 11/02/2011, 1,01/16/2010,12/16 SANDHYA VACCINE QUAD LAIV4 PF NASAL 11/20/2013 MENINGOCOCCAL ACWY (MCV4P) VAC IM 09/30/2017, MMR 05/24/2006,06/23/2002 PNEUMOCOCCAL CONJ, PEDS 06/23/2002,01/05,2001,08/18 POLIO IPV 05/24/2006, 3,2001,08/18 TDAP (7yrs+) 09/05/2012 VARICELLA 05/24/2006,06/29/2005 Family History Medical History Relation Name Comments Allergies Father emphysema Alpha 1 antitrypsin deficiency Father emphysema Asthma Father emphysema Eczema Father emphysema Hyperlipidemia Father emphysema Diabetes - Type 2 Maternal Grandmother Thyroid Disease Maternal Grandmother Diabetes - Type 2 Paternal Grandfather Hyperlipidemia Paternal Grandmother Hypertension Paternal Grandmother Relation Name Status Comments Father emphysema Maternal Grandmother Paternal Grandfather Paternal Grandmother Social History Tobacco Use Types Packs/Day Years Used Date Smoking Tobacco: Never Smokeless Tobacco: Never Alcohol Use Standard Drinks/Week Comments No 0 (1 standard drink = 0.6 oz pur e alcohol) Comments No Sex and Gender Information Value Date Recorded Sex Assigned at Not on file Legal Sex Female 5:41 AM MACHINE SILVER STRIPPER Gender Identity Not on file Sexual Orientation Not on file Last Filed Vital Signs Vital Sign Reading Time Taken Comments Blood Pressure 134/87 09/30/2018 2:12 PM CDT Pulse 89 09/30/2018 2:12 PM CDT Temperature 36.2 C (97.1 F) 09/30/2018 2:12 PM CDT Respiratory Rate 32 02/19/2017 11:15 AM MACHINE SILVER STRIPPER Oxygen Saturation 99% 02/19/2017 10:43 AM MACHINE SILVER STRIPPER Inhaled Oxygen Concentration 100% 02/19/2017 1 0:43 AM MACHINE SILVER STRIPPER Weight 70.8 kg (156 lb) 09/30/2018 2:12 PM CDT Height 165.1 cm (5' 5) 09/30/2018 2:12 PM CDT Body Mass Index 25.96 09/30/2018 2:12 PM CDT Plan of Treatment Health Maintenance Due Date Last Done Comments PNEUMOCOCCAL VACCINE (1 of 1 - PPSV23, PCV20, or PCV21) 06/18/2007 06/23/2002, 01/05/2002, 2001, Additional history exists HIV SCREENING 2016 MENINGOCOCCAL (Group B) VACC INE SHARED DECISION-MAKING (1 of 2 - Standard) 2017 HEPATITIS C SCREENING 06/13/2019 PAP SMEAR 2022 DTAP/TDAP/TD VACCINES (7 - T d or Tdap) 09/05/2022 09/05/2012, 05/24/2006, 01/06/2003, Additional history exists CHLAMYDIA/GONORRHEA SCREENING 03/23/2023 03/23/2022 COVID-19 VACCINE (1 - 2023-2 5 season) 2023 DEPRESSION SCREENING 02/12/2024 INFLUENZA VACCINE (#1) 2024 8, 12/20/2016, 11/24/2015, Additional history exists ZOSTER VACCINE (1 of 2) 06/18/2051 HEPATITIS B VACCINE Completed 03/27/2002, 2001, 2001 HIB VACCINE Completed 01/06/2003, 12/13, 2001, Additional history exists HPV VACCINE Completed 03/12/2013, 10/13, 09/05/2012 MENINGOCOCCAL GROUPS A/C/Y/W VACCINE Completed 09/30/2017, 09/05/2012 Goals Goal Patient Goal Type Associated Problems Recent Progress Patient-Stated? Author Use safety retraint in car Lifestyle On track( 019 9:09 AM MACHINE SILVER STRIPPER) Lyndsey Fraire RN Insurance MEDICAID - OUT OF STATE [facility] MEDICAID - [facility] MEDICAID - [place] * Guarantor: KARLEY WASSERMAN Account Type Relation to Patient Date of Phone Billing Address Personal/Family [address] [place] [id number] [place] [address] Care Teams Property Portfolio Officer Relationship Specialty Start Date End Date Loco Cardoza DO PCP - General 06/11/20
--- OUTSIDE RECORDS SUMMARY | 2024-08-24 21:03 | XMS_ITS | Referral Summary ---
Author Organization [facility] Address [address] [place] [address] Care Team Providers Care Hand Icer Name Role Phone Sam Tavarez MD Primary Care Provider +1- [phone] Allergies Active Allergy Reactions Criticality Noted Date Comments Latex Rash Medium 02/28/2011 Mom has the latex allergy Sulfa (Sulfonamide Antibiotics) Hives,Rash Medium 10/19/2020 Medications vit 81-qxzf-yicov-dh a 27mg iron- 800 mcg-250 mg capsule [...] Immunization Administration Dates Next Due Tdap 12/26/2020 Social History Tobacco Use Types Packs/Day Years [...] often do you attend chur ch or synagogue services? Never 06/07/2022 Do you belong to any clubs o r organizations such as latter day groups, unions, fraternal or athletic groups, or [...] staff should administer the PHQ-9) 2 06/07/2022 [facility] of Occupat ional Health - Occupational Stress [...] place to sleep or slept in a usp (including now)? No 06/07/2022 [place] Depression Scale Answer Date Recorded [place] Depression Scale Total 16 04/13/2021 The thought of harming myself has occurred to me . Never 04/13/2021 Personal Safety Answer Date Recorded Getting School Help Needed Not on file 08/12 Comments No Sex and Gender Information Value Date Recorded Sex Assigned at Not on file Legal Sex Female 6:53 PM ELECTRICAL HIGH TENSION TESTER Gender Identity Not on file Sexual Orientation [...] 07/25/2022 11:45 AM CDT Plan of Treatment Not on file Procedures Procedure Name Priority Date/Time Associated Diagnosis Comments HEPATITIS C ANTIBODY Routine 03/23/2022 11:32 AM ELECTRICAL HIGH TENSION TESTER Encounter for supervision of other normal in first trimester N. GONORRHOEAE/C. TRACHOMATIS AMPLIFICATION Routine 03/23/2022 11:14 AM ELECTRICAL HIGH TENSION TESTER Encounter for supervision of other normal in first trimester Screening for STD (sexually transmitted disease) from Last 3 Months or Most Recently Relevant to Health Maintenance Results * Hepatitis C antibody (03/23/2022 11:32 AM ELECTRICAL HIGH TENSION TESTER) Hep C Ab Nonreactive Nonreactive DOMO FRAZIER [...] on 2019. Blood 03/23/2022 11:3 2 AM ELECTRICAL HIGH TENSION TESTER 03/23/2022 3:36 PM ELECTRICAL HIGH TENSION TESTER Kiki Roberto CNM LAB MICROBIOLOGY - GENERAL OR DERABLES Final Result DOMO [address] [facility] Department of Laboratories [place], [place] [id number] * N. gonorrhoeae/C. trachomatis Amplification Vaginal (03/23/2022 11:14 AM ELECTRICAL HIGH TENSION TESTER) C. trachomatis Not Detected Not Detected DOMO FRAZIER Comment:Testing performed by : [facility], [address] [place] [address]., [address] N. gonorrhoeae Not Detected Not Detected DOMO FRAZIER Comment: Interpretive Data Testing performed by the [facility]. This assay detects Chlamydia trachomatis and Neisseria gonorrhoeae by nucleic acid amplification testing (NAAT). This test is approved by the [facility] Food and Drug Administration and the performance characteristics have been verified by the laboratory. The performance characteristics of this test have not been evaluated in individuals less than 14 years of age. Current Interpretive Data was last revised on 2019. Testing performed by: [address] [address] Vaginal (None) 03/23/2022 11 :14 AM ELECTRICAL HIGH TENSION TESTER 03/23/2022 2:02 PM ELECTRICAL HIGH TENSION TESTER Kiki Roberto CNM LAB MICROBIOLOGY - GENERAL OR DERABLES Final Result [facility] [address] [facility] Department [place] [address] from Last 3 Months or Most Recently Relevant to Health Maintenance Insurance [facility] [employer] [facility] Advance Directives For more information, please contact: [phone] * Full Code (Latest Code Status on [...] n case of cardiopulmonary arrest Care Teams Hand Icer Relationship Specialty Start Date End Date Sam Tavarez MD [address] [place] [address] PCP - General Internal Medicine 01/04/22
[2024-08-24 21:06] VITALS: BP 130/77; PULSE 102; RESP 18; TEMP 36.6; O2SAT 99
[2024-08-24 21:26] LABS: Hematocrit 37.0 % (37.0-47.0); Hemoglobin 12.0 g/dL (12.0-15.0); Immature Granulocyte Percent A 0.5 % (0-0.5); Lymphocytes Absolute Auto 2.63 K/mm3 (0.9-3.2); Mean Corpuscular HGB Conc 32.4 g/dl (32-36); Mean Corpuscular Hemoglobin 27.5 pg (26-34); Mean Corpuscular Volume 84.7 fl (80-100); Nucleated Red Blood Cells Absolute Auto 0.000 K/mm3 (0.0-0.012); Nucleated Red Blood Cells Perc 0.0 % (0.0-0.2); Platelet Count Result 318 k/mm3 (150-375); Red Blood Count 4.37 M/mm3 (4.2-5.4); White Blood Count 16.9 K/mm3 (4.5-10.0)
[2024-08-24 21:38] LABS: Alanine Aminotransferase 51 U/L (6-35); Albumin Level 4.4 g/dL (3.5-5.1); Alkaline Phosphatase 117 U/L (38-126); Anion Gap 13 mmol/L (4-12); Aspartate Amino Transferase 39 U/L (14-36); Bilirubin,Total 0.2 mg/dL (0.2-1.3); Blood Urea Nitrogen 9 mg/dL (7-17); Calcium 9.6 mg/dL (8.4-10.2); Carbon Dioxide 20 mmol/L (22-30); Chloride 103 mmol/L (98-107); Estimated CRCL calculation 165 ml/min; Estimated Glomerular Filt Rate > 60; Glucose 94 mg/dL (65-110); Lipase 92 U/L (23-300); Potassium 3.9 mmol/L (3.4-5.0); Sodium 136 mmol/L (137-145); Total Protein 8.3 g/dL (6.3-8.2)
[2024-08-24 21:43] LABS: INR 0.9; Prothrombin Time 12.3 Seconds (11.1-14.7)
[2024-08-24 21:44] LABS: Partial Thromboplastin Time 27.1 Seconds (22.3-36.8)
[2024-08-24 21:48] LABS: Troponin I < 0.012 ng/mL (0.000-0.034)
[2024-08-24 22:33] LABS: BEDSIDEPREGUCG Positive (Negative)
[2024-08-25] MEDS: SODIUM CHLORIDE 0.9% IV 1,000 ML 999 ML IV CONT (00:10)
--- NOTE | 2024-08-25 00:20 | ECG_ITS ---
Test Date: 2024-08-25 00:22:10 Measurements Intervals [place] Rate: 99 P: 40 NM: 142 QRS: 1 QRSD: 93 T: 18 QT: 346 QTc: 445 Interpretive Statements SINUS RHYTHM NORMAL ELECTROCARDIOGRAM Compared to ECG 08/24/2024 21:13:02 NO SIGNIFICANT CHANGE Electronically Signed On 08-25-2024 10:12:02 CDT by John Ribeiro M.D.
[2024-08-25 00:31] LABS: Add Urine Microscopic? YES; Appearance Urine Clear (Clear); Glucose Urine UA Negative (Negative); Leukocyte Esterase Ur Trace LEU/UL (Negative); Nitrate Urine Negative (Negative); Non Pathogenic Casts 0-2; Specific Grav Ur 1.013 (1.001-1.035)
--- OUTSIDE RECORDS SUMMARY | 2024-08-25 00:47 | XMS_ITS | Clinical Summary ---
Author Organization [facility] Address [address] [place] [address] Care Team Providers Care Data Coder Operator Name Role Phone Sam Tavarez MD Primary Care Provider +1- [phone] Allergies Active Allergy Reactions Criticality Noted Date Comments Latex Rash Medium 02/28/2011 Mom has the latex allergy Sulfa (Sulfonamide Antibiotics) Hives,Rash Medium 10/19/2020 Medications vit 80-tief-zcymx-dh a 27mg iron- 800 mcg-250 mg capsule [...] often do you attend chur ch or taoism services? Never 06/07/2022 Do you belong to any clubs o r organizations such as jew groups, unions, fraternal or athletic groups, or [...] staff should administer the PHQ-9) 2 06/07/2022 [facility] of Occupat ional Health - Occupational [...] place to sleep or slept in a assisted (including now)? No 06/07/2022 [place] Depression Scale Answer Date Recorded [place] Depression Scale Total 16 04/13/2021 The thought of harming myself has occurred to me . Never 04/13/2021 Personal Safety Answer Date Recorded Getting School Help Needed Not on file 08/12 Comments No Sex and Gender Information Value Date Recorded Sex Assigned at Not on file Legal Sex Female 6:53 PM SAFETY AND SECURITY OFFICER Gender Identity Not on file Sexual Orientation [...] ,WILLARDL Spenser Dennison MD Complications:Pre eclampsia Delivery Location:[facility] Main C ampus ([facility]) Last Filed Vital Signs Vital [...] HEPATITIS C ANTIBODY Routine 03/23/2022 11:32 AM SAFETY AND SECURITY OFFICER Encounter for supervision of other normal in first trimester N. GONORRHOEAE/C. TRACHOMATIS AMPLIFICATION Routine 03/23/2022 11:14 AM SAFETY AND SECURITY OFFICER Encounter for supervision of other normal in first trimester Screening for STD (sexually transmitted disease) from Last 3 Months or Most Recently Relevant to Health Maintenance Results * Hepatitis C antibody (03/23/2022 11:32 AM SAFETY AND SECURITY OFFICER) Hep C Ab Nonreactive Nonreactive DOMO FRAZIER [...] on 2019. Blood 03/23/2022 11:3 2 AM SAFETY AND SECURITY OFFICER 03/23/2022 3:36 PM SAFETY AND SECURITY OFFICER us Kiki RODRIGUEZ LAB MICROBIOLOGY - GENERAL OR DERABLES Final Result DOMO FRAZIER [address] [facility] Department [place] [address] * N. gonorrhoeae/C. trachomatis Amplification Vaginal (03/23/2022 11:14 AM SAFETY AND SECURITY OFFICER) Pathologist [facility] C. trachomatis Not Detected Not Detected DOMO FRAZIER Comment:Testing performed by : [address] [address] N. gonorrhoeae Not Detected Not Detected DOMO FRAZIER Comment: Interpretive Data Testing performed by the [facility]. This assay detects Chlamydia trachomatis [...] last revised on 2019. Testing performed by: [address], [place]., [address] Vaginal (None) 03/23/2022 11 :14 AM SAFETY AND SECURITY OFFICER 03/23/2022 2:02 PM SAFETY AND SECURITY OFFICER Kiki Roberto CNM LAB MICROBIOLOGY - GENERAL OR DERABLES Final Result Performing Organization Address City/State/[facility] Co va Phone Number DOMO [address] [facility] Department [place] [address] from Last 3 Months or Most Recently Relevant to Health Maintenance Insurance [facility] [employer] BETTER [place] Advance Directives For more information, please contact: [phone] * Full Code (Latest Code Status on [...] n case of cardiopulmonary arrest Care Teams Data Coder Operator Relationship Specialty Start Date End Date Sam Tavarez MD [address] [place] [address] PCP - General Internal Medicine 01/04/22
--- OUTSIDE RECORDS SUMMARY | 2024-08-25 00:47 | XMS_ITS | Clinical Summary ---
Author Organization [facility] Address [address] [place] [address] Care Team Providers Care Teacher Aide Name Role Phone Loco Cardoza DO Primary Care Provider Source Comments [facility],non-owned Affiliates and Associated Physician Practices is amultiple site organization consisting of ambulatory clinics and hospital sitesin [place], [place], [place] and [place]. This disclosure is being madepursuant to the Care Everywhere program and may not contain all information available regarding this patient. Last updated 17.[facility] Allergies Active Allergy Reactions Criticality Noted Date [...] Insurance coverage problems 07/19/2016 09/30/2017 Overview (08/21/2016): [place] with very limited acne formulary and step [...] Virus Toma valent Vaccine 03/12/2013,10/31/2012,09/05/2012 INFLUENZA A [id number] VACCINE 12/31/2008 INFLUENZA VACCINE, QUADR. (F LUZONE; [...] on file Legal Sex Female 5:41 AM PHOTO OFFSET PRINTER Gender Identity Not on file Sexual Orientation Not on file Last Filed Vital Signs Vital Sign Reading Time Taken Comments Blood Pressure 134/87 09/30/2018 2:12 PM CDT Pulse 89 09/30/2018 2:12 PM CDT Temperature 36.2 C (97.1 F) 09/30/2018 2:12 PM CDT Respiratory Rate 32 02/19/2017 11:15 AM PHOTO OFFSET PRINTER Oxygen Saturation 99% 02/19/2017 10:43 AM PHOTO OFFSET PRINTER Inhaled Oxygen Concentration 100% 02/19/2017 1 0:43 AM PHOTO OFFSET PRINTER Weight 70.8 kg (156 lb) 09/30/2018 2:12 [...] car Lifestyle On track( 019 9:09 AM PHOTO OFFSET PRINTER) Lyndsey Fraire RN Insurance MEDICAID - OUT OF STATE [facility] MEDICAID - [facility] MEDICAID - [place] * Guarantor: KARLEY WASSERMAN Account Type Relation to Patient Date of Phone Billing Address Personal/Family [address] [place] [id number] [place] [address] Care Teams Teacher Aide Relationship Specialty Start Date End Date Loco Cardoza DO PCP - General 06/11/20
--- OUTSIDE RECORDS SUMMARY | 2024-08-25 00:47 | XMS_ITS | Clinical Summary ---
Author Organization [facility] Address [address] [place] [address] Phone Care Team Providers Care Freight Claim Investigator Name Role Phone Sam Tavarez MD Primary Care Provider [phone] [phone] Allergies Active Allergy Reactions Criticality Noted Date [...] drink = 0.6 oz pur e alcohol) [facility] Utilities Answer Date Recorded In the past [...] often do you attend chur ch or protestant services? 1 to 4 times per year 07/24/2023 Do you belong to any clubs o r organizations such as moravian groups, unions, fraternal or athletic groups, or [...] Total Score - Questions 1-9 0 01/11 [facility] [place] of Occupat ional Health - Occupational Stress [...] any time in the past 12 m [facility], were you homeless or living in a usp (including now)? No 07/24/2023 Sexually Active Control Partners Comments Yes Comments Unknown Sex and Gender Information Value Date Recorded Sex Assigned at Not on file Legal Sex Female 11:00 AM CDT Gender Identity Not on file Sexual Orientation Not on file Last Filed Vital Signs Vital Sign Reading Time Taken Comments Blood Pressure 120/65 04/15/2024 1:32 PM TONGUE PRESSER Pulse 82 04/15/2024 1:32 PM TONGUE PRESSER Temperature 37.2 C (99 F) 04/15/2024 1:32 PM TONGUE PRESSER Respiratory Rate 16 04/15/2024 1:32 PM TONGUE PRESSER Oxygen Saturation 100% 04/15/2024 1:32 PM TONGUE PRESSER Inhaled Oxygen Concentration - - Weight 81.6 kg (180 lb) 04/15/2024 12:17 PM TONGUE PRESSER Height 165.1 cm (5' 5) 04/15/2024 12:17 PM TONGUE PRESSER Body Mass Index 29.95 04/15/2024 12:17 PM TONGUE PRESSER Plan of Treatment Health Maintenance Due Date [...] age to complete this topic Insurance MEDICAID [facility] MEDICAID [facility] Care Teams Freight Claim Investigator Relationship Specialty Start Date End Date Sam Tavarez MD [address] [place] [address] PCP - General Internal Medicine 03/07/22
--- OUTSIDE RECORDS SUMMARY | 2024-08-25 00:47 | XMS_ITS | Referral Summary ---
Author Organization [facility] Address [address] [place] [address] Care Team Providers Care Desizing Machine Offbearer Name Role Phone Sam Tavarez MD Primary Care Provider +1- [phone] Allergies Active Allergy Reactions Criticality Noted Date Comments Latex Rash Medium 02/28/2011 Mom has the latex allergy Sulfa (Sulfonamide Antibiotics) Hives,Rash Medium 10/19/2020 Medications vit 36-bwcq-niffr-dh a 27mg iron- 800 mcg-250 mg capsule [...] often do you attend chur ch or evangelical services? Never 06/07/2022 Do you belong to any clubs o r organizations such as restorationism groups, unions, fraternal or athletic groups, or [...] staff should administer the PHQ-9) 2 06/07/2022 [facility] of Occupat ional Health - [...] place to sleep or slept in a mcfp (including now)? No 06/07/2022 [place] Depression Scale Answer Date Recorded [place] Depression Scale Total 16 04/13/2021 The thought of harming myself has occurred to me . Never 04/13/2021 Personal Safety Answer Date Recorded Getting School Help Needed Not on file 08/12 Comments No Sex and Gender Information Value Date Recorded Sex Assigned at Not on file Legal Sex Female 6:53 PM AIRFIELD OPERATIONS SPECIALIST Gender Identity Not on file Sexual Orientation [...] HEPATITIS C ANTIBODY Routine 03/23/2022 11:32 AM AIRFIELD OPERATIONS SPECIALIST Encounter for supervision of other normal in first trimester N. GONORRHOEAE/C. TRACHOMATIS AMPLIFICATION Routine 03/23/2022 11:14 AM AIRFIELD OPERATIONS SPECIALIST Encounter for supervision of other normal in first trimester Screening for STD (sexually transmitted disease) from Last 3 Months or Most Recently Relevant to Health Maintenance Results * Hepatitis C antibody (03/23/2022 11:32 AM AIRFIELD OPERATIONS SPECIALIST) Hep C Ab Nonreactive Nonreactive DOMO FRAZIER [...] on 2019. Blood 03/23/2022 11:3 2 AM AIRFIELD OPERATIONS SPECIALIST 03/23/2022 3:36 PM AIRFIELD OPERATIONS SPECIALIST Kiki Roberto CNM LAB MICROBIOLOGY - GENERAL OR DERABLES Final Result DOMO [address] [facility] Department of Laboratories [place], [place] [id number] * N. gonorrhoeae/C. trachomatis Amplification Vaginal (03/23/2022 11:14 AM AIRFIELD OPERATIONS SPECIALIST) C. trachomatis Not Detected Not Detected DOMO FRAZIER Comment:Testing performed by : [facility], [address] [place] [address]., [address] N. gonorrhoeae Not Detected Not Detected DOMO FRAZIER Comment: Interpretive Data Testing performed by the [facility]. This assay detects Chlamydia trachomatis and Neisseria gonorrhoeae by nucleic acid amplification testing (NAAT). This test is approved by the [facility] Food and Drug Administration and the performance characteristics have been verified by the laboratory. The performance characteristics of this test have not been evaluated in individuals less than 14 years of age. Current Interpretive Data was last revised on 2019. Testing performed by: [address] [address] Vaginal (None) 03/23/2022 11 :14 AM AIRFIELD OPERATIONS SPECIALIST 03/23/2022 2:02 PM AIRFIELD OPERATIONS SPECIALIST Kiki Roberto CNM LAB MICROBIOLOGY - GENERAL OR DERABLES Final Result [facility] [address] [facility] Department [place] [address] from Last 3 Months or Most Recently Relevant to Health Maintenance Insurance [facility] AETNA BETTER [facility] Advance Directives For more information, please contact: [phone] * Full Code (Latest Code Status on [...] n case of cardiopulmonary arrest Care Teams Desizing Machine Offbearer Relationship Specialty Start Date End Date Sam Tavarez MD [address] [place] [address] PCP - General Internal Medicine 01/04/22
[2024-08-25 00:55] LABS: Troponin I < 0.012 ng/mL (0.000-0.034)
--- NOTE | 2024-08-25 01:04 | ED_ITS ---
HPI - Arrhythmia/Palpitations General Chief Complaint: Arrhythmia/Palpitations Stated Complaint: Palpitations- 14 weeks preg-hx preeclampsia Time Seen by Provider: 08/24/24 23:46 History of Present Illness HPI narrative: Patient is a 34-year-old female who presents the emergency department this evening complaining of heart palpitations for the past 3 days. Patient states that she can feel that her heart is beating out of her chest. States that she has been drinking plenty of fluids as far as she is aware. She is approximately 14 weeks . Had an ultrasound for this already at 10 weeks which was normal. Follows up with Dr. Jimenez a. This is her 3rd . Denies any vaginal bleeding or spotting. No reported fevers or chills. Noticed symptoms or concerns at this time. Related Data Allergies Allergy/AdvReac Type Severity Reaction Status Date / Time Sulfa (Sulfonamide Allergy Intermediate Hives Verified 08/16/22 17:10 Antibiotics) latex Allergy Mild RASH Verified 08/16/22 17:10 Review of Systems 2 Review of Systems: All systems are reviewed and are negative unless stated otherwise in the HPI. [facility] Past Medical History Medical History Anxiety and depression Acid reflux Asthma Surgical History Surgical History History of dilatation and curettage History of appendectomy Family History Family History Father [id number]-1-[id number] deficiency Depression Social History Social History Smoking status: Heavy tobacco smoker Tobacco type: cigarettes Smokeless tobacco user: other Second hand tobacco smoke exposure: No Additional smoking assessment comments: vaping Alcohol intake: former Alcohol use details: social Substance use: current Other substance usage details: vaped Lack of Transportation: No Lack of Food: Never True Current Housing: I Have Housing Concerned About Future Housing: No Difficulty Paying Gas/Electric Bills: No Difficulty Paying for Meds: No Currently Unemployed: YES Education: High School Diploma/GED Difficulty w/ Childcare or Family Care: No Living arrangements: with family Occupation/Education: occupation Additional occupation/education comments: [employer] Gender identity (if verbalized by the patient): Female Spiritual care concerns: No Exam 2 Narrative: General: Alert, awake, afebrile, in no acute distress. HEENT: PERRL, no rhinorrhea, no post nasal drip, oropharynx clear. Neck: Trachea midline, no JVD, no lymphadenopathy. Cardiovascular: Tachycardic with regular rhythm, no murmurs, rubs or gallops, no peripheral edema. Respiratory: Clear to auscultation bilaterally, no tachypnea, no wheezing, no rhonchi, no rubs, no respiratory distress. Abdomen: Soft, nontender, nondistended, no rebound, no guarding, no peritoneal signs. Musculoskeletal: No joint swelling or deformity, normal muscle tone. Skin: No rashes or petechia, no signs of infection. Psychiatric: Alert and oriented, normal behavior and judgment for situation. Neurological: Alert and oriented to person, place, and time. Follows all commands. No focal deficits, speech is clear and fluent. Course Vital Signs Vital signs: Vital Signs Temperature 97.9 F 08/24/24 21:06 Pulse Rate 102 H 08/24/24 21:06 Respiratory Rate 18 08/24/24 21:06 Blood Pressure 130/77 08/24/24 21:06 Pulse Oximetry 99 08/24/24 21:06 Oxygen Delivery Room Air 08/24/24 21:06 Temperature 97.9 F 08/24/24 21:06 Pulse Rate 102 H 08/24/24 21:06 Respiratory Rate 18 08/24/24 21:06 Blood Pressure 130/77 08/24/24 21:06 Pulse Oximetry 99 08/24/24 21:06 Oxygen Delivery Room Air 08/24/24 21:06 MDM - Arrhythmia/Palpitations MDM Narrative Medical decision making narrative: The patient was evaluated by myself in the emergency department. History is obtained from patient who is an independent historian and physical exam was performed. External medical records were reviewed at this time. IV was established and pertinent tests were ordered. Patient was administered 1 L IV fluid bolus with normal saline. EKG was obtained which revealed sinus tachycardia rate of 102 beats per minute. No ST changes, T wave inversions or evidence of acute ischemia. EKG was independently interpreted by me and is currently pending official cardiology read. Laboratory results obtained revealing a leukocytosis of 13 otherwise unremarkable. Urinalysis unremarkable. Imaging studies obtained included CXR which was independently interpreted by me revealing no acute cardiopulmonary process, which is pending final radiology interpretation. Differential diagnosis considerations include dehydration, electrolyte derangements, arrhythmia, related changes, acute viral syndrome. Comorbidities impacting this visit include current first-trimester . I have evaluated and discussed social determinants of health with the patient that could potentially impact subsequent diagnosis and treatment plans. On repeat assessment of the patient, reevaluation revealed that the patient is doing well and is in no acute distress. Patient symptoms have improved since she arrived to our emergency department. Repeat vital signs were all reviewed and noted to be stable. Differential diagnosis and treatment plan were discussed with the patient at bedside. Patient agrees with discussion and after shared medical decision making agrees with discharge. All questions were answered to the patient's satisfaction. Patient will follow up with her OB in 3-5 days. Was also per the Cardiology referral instructed to call to set up a follow-up appoint regarding her palpitations as he may need a Holter monitor/echocardiogram. Patient was provided with strict return precautions and instructed to return to the emergency department if any new or worsening symptoms develop. The patient was discharged in stable condition. Lab Data 08/24/24 21:20 08/24/24 21:20 Labs: Lab Results 08/24/24 08/24/24 08/25/24 Range/Units 21:20 22:32 00:02 WBC 16.9 H (4.5-10.0) K/mm3 RBC 4.37 (4.2-5.4) M/mm3 Hgb 12.0 D (12.0-15.0) g/dL Hct 37.0 (37.0-47.0) % MCV 84.7 (80-100) fl MCH 27.5 (26-34) pg MCHC 32.4 (32-36) g/dl RDW 14.8 H (11.5-14.5) % Plt Count 318 (150-375) k/mm3 MPV 8.9 (7.4-10.4) fl Immature Gran % (Auto) 0.5 (0-0.5) % Neut % (Auto) 77.4 H (45.5-73.1) % Lymph % (Auto) 15.6 L (18.3-44.2) % [place] % (Auto) 4.7 (2.6-8.5) % Eos % (Auto) 1.5 (0-4.4) % Baso % (Auto) 0.3 (0.2-1.2) % Lymph # (Auto) 2.63 (0.9-3.2) K/mm3 [place] # (Auto) 0.8 H (0.1-0.6) K/mm3 Eos # (Auto) 0.3 (0-0.3) K/mm3 Baso # (Auto) 0.1 (0.0-0.1) K/mm3 Abs Immat Gran (auto) 0.08 H (0.00-0.031) K/mm3 Absolute Neuts (auto) 13.1 H (1.3-6.7) K/mm3 Absolute Nucleated RBC 0.000 (0.0-0.012) K/mm3 Nucleated RBC % 0.0 (0.0-0.2) % PT 12.3 (11.1-14.7) Seconds INR 0.9 APTT 27.1 (22.3-36.8) Seconds Sodium 136 L (137-145) mmol/L Potassium 3.9 (3.4-5.0) mmol/L Chloride 103 (98-107) mmol/L Carbon Dioxide 20 L (22-30) mmol/L Anion Gap 13 H (4-12) mmol/L BUN 9 (7-17) mg/dL Creatinine 0.47 L (0.7-1.0) mg/dL Estim Creat Clear Calc 165 ml/min Estimated GFR > 60 (59 - ) Glucose 94 (65-110) mg/dL Calcium 9.6 (8.4-10.2) mg/dL Total Bilirubin 0.2 (0.2-1.3) mg/dL AST 39 H (14-36) U/L ALT 51 H (6-35) U/L Alkaline Phosphatase 117 (38-126) U/L Troponin I < 0.012 (0.000-0.034) ng/mL Total Protein 8.3 H (6.3-8.2) g/dL Albumin 4.4 (3.5-5.1) g/dL Lipase 92 (23-300) U/L Urine Color Yellow (Yellow) Urine Appearance Clear (Clear) Urine pH 6.0 (5.0-9.0) Ur Specific [place] 1.013 (1.001-1.035) Urine Protein Negative (Negative) mg/dL Urine Glucose (UA) Negative (Negative) mg/dL Urine Ketones Negative (Negative) mg/dL Ur Blood (Man) Negative (Negative) Urine Nitrate Negative (Negative) Urine Bilirubin Negative (Negative) Urine Urobilinogen 0.2 (<2.0) mg/dL Leukocyte Esterase Rfl Trace H (Negative) CURTIS/UL Urine RBC 0-2 (0-2) /hpf Urine WBC 0-5 (0-3) /hpf Ur Squamous Epith Cells Few (Few) /hpf Urine Bacteria Rare /hpf Urine Casts 0-2 POC Urine HCG, Qual Positive (Negative) 08/25/24 Range/Units 00:16 WBC (4.5-10.0) K/mm3 RBC (4.2-5.4) M/mm3 Hgb (12.0-15.0) g/dL Hct (37.0-47.0) % MCV (80-100) fl MCH (26-34) pg MCHC (32-36) g/dl RDW (11.5-14.5) % Plt Count (150-375) k/mm3 MPV (7.4-10.4) fl Immature Gran % (Auto) (0-0.5) % Neut % (Auto) (45.5-73.1) % Lymph % (Auto) (18.3-44.2) % [place] % (Auto) (2.6-8.5) % Eos % (Auto) (0-4.4) % Baso % (Auto) (0.2-1.2) % Lymph # (Auto) (0.9-3.2) K/mm3 [place] # (Auto) (0.1-0.6) K/mm3 Eos # (Auto) (0-0.3) K/mm3 Baso # (Auto) (0.0-0.1) K/mm3 Abs Immat Gran (auto) (0.00-0.031) K/mm3 Absolute Neuts (auto) (1.3-6.7) K/mm3 Absolute Nucleated RBC (0.0-0.012) K/mm3 Nucleated RBC % (0.0-0.2) % PT (11.1-14.7) Seconds INR APTT (22.3-36.8) Seconds Sodium (137-145) mmol/L Potassium (3.4-5.0) mmol/L Chloride (98-107) mmol/L Carbon Dioxide (22-30) mmol/L Anion Gap (4-12) mmol/L BUN (7-17) mg/dL Creatinine (0.7-1.0) mg/dL Estim Creat Clear Calc ml/min Estimated GFR (59 - ) Glucose (65-110) mg/dL Calcium (8.4-10.2) mg/dL Total Bilirubin (0.2-1.3) mg/dL AST (14-36) U/L ALT (6-35) U/L Alkaline Phosphatase (38-126) U/L Troponin I < 0.012 (0.000-0.034) ng/mL Total Protein (6.3-8.2) g/dL Albumin (3.5-5.1) g/dL Lipase (23-300) U/L Urine Color (Yellow) Urine Appearance (Clear) Urine pH (5.0-9.0) Ur Specific [place] (1.001-1.035) Urine Protein (Negative) mg/dL Urine Glucose (UA) (Negative) mg/dL Urine Ketones (Negative) mg/dL Ur Blood (Man) (Negative) Urine Nitrate (Negative) Urine Bilirubin (Negative) Urine Urobilinogen (<2.0) mg/dL Leukocyte Esterase Rfl (Negative) CURTIS/UL Urine RBC (0-2) /hpf Urine WBC (0-3) /hpf Ur Squamous Epith Cells (Few) /hpf Urine Bacteria /hpf Urine Casts POC Urine HCG, Qual (Negative) Discharge Plan Discharge Clinical Impression: Heart palpitations Patient Disposition: Home Condition: Improved Instructions: Antibiotic Form, Heart Palpitations (DC) Additional Instructions: Please follow-up with your OB within the next 3-5 days. Return to emergency department if any new or worsening symptoms develop. Your provided the Cardiology referral instructed to call tomorrow to set up a follow-up appointment regarding heart palpitations. Patient Language: Polish Prescriptions: No Action doxycycline monohydrate 100 mg tablet 100 mg PO BID Qty: 14 0RF Follow-up/Referrals: Castro Mar MD [Physician] - 3 Days Kari Tavarez MD [Physician] - 3 Days Corby,Sam Cerna MD [Primary Care Provider] - Time of Disposition: 01:05
== END 2024-08-25 01:20 | disposition home or self-care (01) ==
PROVIDERS: Emergency Medicine; Emergency Provider Emergency Medicine; PCP Internal Medicine
DX: O26.892 Other specified pregnancy related conditions, second trimester (principal); R00.2 Palpitations; O99.612 Diseases of the digestive system complicating pregnancy, second trimester; K21.9 Gastro-esophageal reflux disease without esophagitis; O99.512 Diseases of the respiratory system complicating pregnancy, second trimester; J45.909 Unspecified asthma, uncomplicated; O99.332 Smoking (tobacco) complicating pregnancy, second trimester; F17.210 Nicotine dependence, cigarettes, uncomplicated; F17.290 Nicotine dependence, other tobacco product, uncomplicated; O99.891 Other specified diseases and conditions complicating pregnancy; R00.0 Tachycardia, unspecified; Z3A.14 14 weeks gestation of pregnancy
CPT/HCPCS: 36415; 71046; 80053; 81001; 81025; 83690; 84484; 85025; 85610; 85730; 93005; 96360; 99284; J7030

== ENCOUNTER 2024-09-14 14:52 | Emergency (ER) | payer OTHER, SELFPAY ==
[2024-09-14 15:01] VITALS: BP 126/80; PULSE 90; RESP 15; TEMP 36.4; O2SAT 100
--- NOTE | 2024-09-14 15:06 | ED.HA ---
HPI - Headache General Chief Complaint: Headache <Marcelino Evans APRN - Last Filed: 09/14/24 15:08> Stated Complaint: headache since yesterday <Marcelino Evans APRN - Last Filed: 09/14/24 15:08> Time Seen by Provider: 09/14/24 17:43 <Marcelino Evans APRN - Last Filed: 09/14/24 15:08> 24-year-old female presents to the ER complained of headache since yesterday. Patient reports a headache approximately 20 hours ago she reports headaches in the middle of her forehead, reports photophobia, phonophobia, nausea, and vomiting. Patient has never been diagnosed with migraines but has had similar episodes before. Patient is currently 17 weeks . Patient denies any abdominal pain, vision changes, diarrhea, vaginal bleeding, fevers, body aches, chills, or any other symptoms. Patient took a dose of Tylenol yesterday without relief. Focused HPI: GENERAL: Well-appearing, well-nourished, and in no acute distress. HEAD: Normocephalic, atraumatic. CHEST: Clear to auscultation. ?No respiratory distress. HEART: Regular rate and rhythm.? NEURO: ?Alert and oriented x3. Patient screened in triage and initial orders placed.? ?Additional care and disposition to be based upon?diagnostic testing and treatment. <Marcelino Evans APRN - Last Filed: 09/14/24 15:08> History of Present Illness HPI Narrative: Agree with HPI. <Nahun Maria MD - Last Filed: 09/14/24 20:00> Related Data Allergies/Adverse Reactions: Allergies Allergy/AdvReac Type Severity Reaction Status Date / Time Sulfa (Sulfonamide Allergy Intermediate Hives Verified 09/14/24 14:56 Antibiotics) latex Allergy Mild RASH Verified 09/14/24 14:56 <Marcelino Evans APRN - Last Filed: 09/14/24 15:08> Review of Systems Review of Systems: All systems reviewed & are unremarkable except as noted in HPI and below <Nahun Maria MD - Last Filed: 09/14/24 20:00> Constitutional: Constitutional: Reports no additional constitutional complaints <Nahun Maria MD - Last Filed: 09/14/24 20:00> Gastrointestinal: Gastrointestinal: Reports no additional gastrointestinal complaints <Nahun Maria MD - Last Filed: 09/14/24 20:00> Genitourinary: Genitourinary: Reports no additional female genitourinary complaints <Nahun Maria MD - Last Filed: 09/14/24 20:00> Neurologic: Reports system reviewed and no additional complaints, except as documented <Nahun Maria MD - Last Filed: 09/14/24 20:00> PMFSH Past Medical History Medical History: Medical History Anxiety and depression Acid reflux Asthma <Marcelino Evans APRN - Last Filed: 09/14/24 15:08> Surgical History Surgical History: Surgical History History of dilatation and curettage History of appendectomy <Marcelino Evans APRN - Last Filed: 09/14/24 15:08> Family History Family History: Family History Father Eovuq-8-[id number] deficiency Depression <Marcelino Evans APRN - Last Filed: 09/14/24 15:08> Social History Social History: Social History Smoking status: Heavy tobacco smoker Tobacco type: cigarettes Smokeless tobacco user: other Second hand tobacco smoke exposure: No Additional smoking assessment comments: vaping Alcohol intake: former Alcohol use details: social Substance use: current Other substance usage details: vaped Lack of Transportation: No Lack of Food: Never True Current Housing: I Have Housing Concerned About Future Housing: No Difficulty Paying Gas/Electric Bills: No Difficulty Paying for Meds: No Currently Unemployed: YES Education: High School Diploma/GED Difficulty w/ Childcare or Family Care: No Living arrangements: with family Occupation/Education: occupation Additional occupation/education comments: [employer] Gender identity (if verbalized by the patient): Female Spiritual care concerns: No <Marcelino Evans APRN - Last Filed: 09/14/24 15:08> Exam Narrative: GENERAL: Well-appearing, well-nourished, and in no acute distress. HEAD: Normocephalic, atraumatic. ENT: Mucous membranes moist. CHEST: Clear to auscultation. No respiratory distress. HEART: Regular rate and rhythm. Normal peripheral pulses. EXTREMITIES: Normal range of motion. No edema. SKIN: Warm, dry, no rash. NEURO: Alert and oriented x3. PSYCH: Normal mood and affect. <Nahun Maria MD - Last Filed: 09/14/24 20:00> Course Course Emergency Course: Headache improved with fluid/Reglan/Benadryl. She also received oral Tylenol. Discharge home. <Nahun Maria MD - Last Filed: 09/14/24 20:00> Vital Signs Vital signs: Vital Signs Temperature 97.5 F L 09/14/24 15:01 Pulse Rate 90 09/14/24 15:01 Respiratory Rate 15 09/14/24 15:01 Blood Pressure 126/80 09/14/24 15:01 Pulse Oximetry 100 09/14/24 15:01 Oxygen Delivery Room Air 09/14/24 15:01 Temperature 97.5 F L 09/14/24 15:01 Pulse Rate 90 09/14/24 15:01 Respiratory Rate 15 09/14/24 15:01 Blood Pressure 126/80 09/14/24 15:01 Pulse Oximetry 100 09/14/24 15:01 Oxygen Delivery Room Air 09/14/24 15:01 <Marcelino Evans APRN - Last Filed: 09/14/24 15:08> Vital Signs Temperature 97.5 F L 09/14/24 15:01 Pulse Rate 90 09/14/24 15:01 Respiratory Rate 15 09/14/24 15:01 Blood Pressure 126/80 09/14/24 15:01 Pulse Oximetry 100 09/14/24 15:01 Oxygen Delivery Room Air 09/14/24 15:01 Temperature 97.5 F L 09/14/24 15:01 Pulse Rate 90 09/14/24 15:01 Respiratory Rate 15 09/14/24 15:01 Blood Pressure 126/80 09/14/24 15:01 Pulse Oximetry 100 09/14/24 15:01 Oxygen Delivery Room Air 09/14/24 15:01 <Nahun Maria MD - Last Filed: 09/14/24 20:00> MDM - Headache Lab Data Result diagrams: 09/14/24 17:02 09/14/24 17:02 <Marcelino Evans APRN - Last Filed: 09/14/24 15:08> Labs: Lab Results 09/14/24 09/14/24 Range/Units 17:02 18:45 WBC 16.6 H (4.5-10.0) K/mm3 RBC 3.92 L (4.2-5.4) M/mm3 Hgb 11.1 L (12.0-15.0) g/dL Hct 34.4 L (37.0-47.0) % MCV 87.8 (80-100) fl MCH 28.3 (26-34) pg MCHC 32.3 (32-36) g/dl RDW 15.0 H (11.5-14.5) % Plt Count 315 (150-375) k/mm3 MPV 8.9 (7.4-10.4) fl Immature Gran % (Auto) 0.8 H (0-0.5) % Neut % (Auto) 82.0 H (45.5-73.1) % Lymph % (Auto) 12.7 L (18.3-44.2) % [place] % (Auto) 3.6 (2.6-8.5) % Eos % (Auto) 0.7 (0-4.4) % Baso % (Auto) 0.2 (0.2-1.2) % Lymph # (Auto) 2.10 (0.9-3.2) K/mm3 [place] # (Auto) 0.6 (0.1-0.6) K/mm3 Eos # (Auto) 0.1 (0-0.3) K/mm3 Baso # (Auto) 0.0 (0.0-0.1) K/mm3 Abs Immat Gran (auto) 0.13 H (0.00-0.031) K/mm3 Absolute Neuts (auto) 13.6 H (1.3-6.7) K/mm3 Absolute Nucleated RBC 0.000 (0.0-0.012) K/mm3 Nucleated RBC % 0.0 (0.0-0.2) % Sodium 136 L (137-145) mmol/L Potassium 4.2 (3.4-5.0) mmol/L Chloride 103 (98-107) mmol/L Carbon Dioxide 23 (22-30) mmol/L Anion Gap 10 (4-12) mmol/L BUN 4 L D (7-17) mg/dL Creatinine 0.45 L (0.7-1.0) mg/dL Estim Creat Clear Calc 176 ml/min Estimated GFR > 60 (59 - ) Glucose 85 (65-110) mg/dL Calcium 9.3 (8.4-10.2) mg/dL Total Bilirubin 0.3 (0.2-1.3) mg/dL AST 21 (14-36) U/L ALT 19 (6-35) U/L Alkaline Phosphatase 122 (38-126) U/L Total Protein 7.8 (6.3-8.2) g/dL Albumin 4.1 (3.5-5.1) g/dL Urine Color Yellow (Yellow) Urine Appearance Clear (Clear) Urine pH 7.5 (5.0-9.0) Ur Specific [place] 1.012 (1.001-1.035) Urine Protein Negative (Negative) mg/dL Urine Glucose (UA) Negative (Negative) mg/dL Urine Ketones 1+ H (Negative) mg/dL Ur Blood (Man) Negative (Negative) Urine Nitrate Negative (Negative) Urine Bilirubin Negative (Negative) Urine Urobilinogen 0.2 (<2.0) mg/dL Leukocyte Esterase Rfl Negative (Negative) CURTIS/UL Urine RBC 0-2 (0-2) /hpf Urine WBC 0-5 (0-3) /hpf Ur Squamous Epith Cells Few (Few) /hpf Urine Bacteria None seen /hpf Urine Casts 0-2 POC Urine HCG, Qual Positive (Negative) <Marcelino Evans, [employer] DES[employer] CONS[employer] - Last Filed: 09/14/24 15:08> Lab Results 09/14/24 09/14/24 Range/Units 17:02 18:45 WBC 16.6 H (4.5-10.0) K/mm3 RBC 3.92 L (4.2-5.4) M/mm3 Hgb 11.1 L (12.0-15.0) g/dL Hct 34.4 L (37.0-47.0) % MCV 87.8 (80-100) fl MCH 28.3 (26-34) pg MCHC 32.3 (32-36) g/dl RDW 15.0 H (11.5-14.5) % Plt Count 315 (150-375) k/mm3 MPV 8.9 (7.4-10.4) fl Immature Gran % (Auto) 0.8 H (0-0.5) % Neut % (Auto) 82.0 H (45.5-73.1) % Lymph % (Auto) 12.7 L (18.3-44.2) % [place] % (Auto) 3.6 (2.6-8.5) % Eos % (Auto) 0.7 (0-4.4) % Baso % (Auto) 0.2 (0.2-1.2) % Lymph # (Auto) 2.10 (0.9-3.2) K/mm3 [place] # (Auto) 0.6 (0.1-0.6) K/mm3 Eos # (Auto) 0.1 (0-0.3) K/mm3 Baso # (Auto) 0.0 (0.0-0.1) K/mm3 Abs Immat Gran (auto) 0.13 H (0.00-0.031) K/mm3 Absolute Neuts (auto) 13.6 H (1.3-6.7) K/mm3 Absolute Nucleated RBC 0.000 (0.0-0.012) K/mm3 Nucleated RBC % 0.0 (0.0-0.2) % Sodium 136 L (137-145) mmol/L Potassium 4.2 (3.4-5.0) mmol/L Chloride 103 (98-107) mmol/L Carbon Dioxide 23 (22-30) mmol/L Anion Gap 10 (4-12) mmol/L BUN 4 L D (7-17) mg/dL Creatinine 0.45 L (0.7-1.0) mg/dL Estim Creat Clear Calc 176 ml/min Estimated GFR > 60 (59 - ) Glucose 85 (65-110) mg/dL Calcium 9.3 (8.4-10.2) mg/dL Total Bilirubin 0.3 (0.2-1.3) mg/dL AST 21 (14-36) U/L ALT 19 (6-35) U/L Alkaline Phosphatase 122 (38-126) U/L Total Protein 7.8 (6.3-8.2) g/dL Albumin 4.1 (3.5-5.1) g/dL Urine Color Yellow (Yellow) Urine Appearance Clear (Clear) Urine pH 7.5 (5.0-9.0) Ur Specific [place] 1.012 (1.001-1.035) Urine Protein Negative (Negative) mg/dL Urine Glucose (UA) Negative (Negative) mg/dL Urine Ketones 1+ H (Negative) mg/dL Ur Blood (Man) Negative (Negative) Urine Nitrate Negative (Negative) Urine Bilirubin Negative (Negative) Urine Urobilinogen 0.2 (<2.0) mg/dL Leukocyte Esterase Rfl Negative (Negative) CURTIS/UL Urine RBC 0-2 (0-2) /hpf Urine WBC 0-5 (0-3) /hpf Ur Squamous Epith Cells Few (Few) /hpf Urine Bacteria None seen /hpf Urine Casts 0-2 POC Urine HCG, Qual Positive (Negative) <Nahun Maria MD - Last Filed: 09/14/24 20:00> Discharge Plan Discharge Clinical Impression: Headache, migraine <Marcelino Evans APRN - Last Filed: 09/14/24 15:08> Patient Disposition: Home <Marcelino Evans APRN - Last Filed: 09/14/24 15:08> Condition: Stable <Marcelino Evans APRN - Last Filed: 09/14/24 15:08> Instructions: Migraine Headache (ED) <Marcelino Evans APRN - Last Filed: 09/14/24 15:08> Additional Instructions: Try to stay well hydrated at home. Please return to the emergency department if you develop worsening of your headache or a new headache which is severe, associated with vision changes, associated with neck stiffness or fever, or if it is different from any other headache that you have had before. Return to the emergency department if you develop numbness, weakness or tingling or problems with coordination, or if you develop severe nausea and vomiting and are unable to keep down fluids at home. <Marcelino Evans APRN - Last Filed: 09/14/24 15:08> Patient Language: Guinean <Marcelino Evans APRN - Last Filed: 09/14/24 15:08> Prescriptions: No Action doxycycline monohydrate 100 mg tablet 100 mg PO BID Qty: 14 0RF <Marcelino Evans APRN - Last Filed: 09/14/24 15:08> Follow-up/Referrals: Corby,Sam Cerna MD [Primary Care Provider] - 1 Week <Marcelino Evans APRN - Last Filed: 09/14/24 15:08>
--- OUTSIDE RECORDS SUMMARY | 2024-09-14 15:07 | XMS_ITS | Clinical Summary ---
Author Organization [facility] Address [address] [place] [address] Phone Care Team Providers Care Streetcar Dispatcher Name Role Phone Sam Tavarez MD Primary Care Provider [phone] Allergies Active Allergy Reactions Criticality Noted Date [...] drink = 0.6 oz pur e alcohol) [facility] Utilities Answer Date Recorded In the past 12 months has th e [employer], gas, oil, or water [employer] threatened to shut off services in your [...] 07/24/2023 How often do you attend chur or gnosticism services? 1 to 4 times per year 07/24/2023 Do you belong to any clubs o r organizations such as christian groups, unions, fraternal or athletic groups, or [...] Total Score - Questions 1-9 0 01/11 [facility] - [...] any time in the past 12 m [facility], were you homeless or living in a longterm (including now)? No 07/24/2023 Sexually Active Control Partners Comments Yes Comments Unknown Sex and Gender Information Value Date Recorded Sex Assigned at Not on file Legal Sex Female 11:00 AM CDT Gender Identity Not on file Sexual Orientation Not on file Last Filed Vital Signs Vital Sign Reading Time Taken Comments Blood Pressure 120/65 04/15/2024 1:32 PM FUSING FURNACE LOADER Pulse 82 04/15/2024 1:32 PM FUSING FURNACE LOADER Temperature 37.2 C (99 F) 04/15/2024 1:32 PM FUSING FURNACE LOADER Respiratory Rate 16 04/15/2024 1:32 PM FUSING FURNACE LOADER Oxygen Saturation 100% 04/15/2024 1:32 PM FUSING FURNACE LOADER Inhaled Oxygen Concentration - - Weight 81.6 kg (180 lb) 04/15/2024 12:17 PM FUSING FURNACE LOADER Height 165.1 cm (5' 5) 04/15/2024 12:17 PM FUSING FURNACE LOADER Body Mass Index 29.95 04/15/2024 12:17 PM FUSING FURNACE LOADER Plan of Treatment Health Maintenance Due Date Last Done Comments Hepatitis C Virus (HCV) Screening 2001 Meningococcal B Immunization (1 of 2 - Standard) 2017 Pap Smear 2022 SARS-COV-2 Immunization ( season) 2023 Influenza Immunization (#1) 10/12/20240 03/2017, 12/20/2016, 11/24/2015, Additional history exists Respiratory Syncytial [...] on patient's age to complete this topic Procedures Procedure Name Priority Date/Time Associated Diagnosis Comments TROPONIN I (TRP I) 08/25/2024 12 :00 AM CDT URINALYSIS (UA) RANDOM 08/25/2024 12:00 AM CDT HCG BETA SUBUNIT SERUM QUANT Routine 08/24/2024 12:00 AM CDT PROTIME (PT) (PROTHROMBIN TIME) 08/24/2024 12:00 AM CDT COMPLETE BLOOD COUNT (CBC) WITH DIFF 08/24/2024 12:00 AM CDT APTT (PTT) 08/24/2024 12:00 AM CDT LIPASE 08/24/2024 12:00 AM CDT TROPONIN I (TRP I) 08/24/2024 12 :00 AM CDT UR 24 HR CREATININE CLEARANCE 08/24/2024 12:00 AM CDT CMP (COMPREHENSIVE METABOLIC PANEL) 08/24/2024 12:00 AM CDT XR - CHEST 08/24/2024 12:00 AM CDT from Last 3 Months Results * URINALYSIS (UA) RANDOM (08/25/2024 12:00 AM CDT) 08/25/2024 us Provider Scan URINE ORDERABLES Final Result Performing Organization Address [facility] de Phone Number SCAN * TROPONIN I (TRP I) (08/25/2024 12:00 AM CDT) Only the most recent of2 resultswithin the time period is included. 08/25/2024 us Provider Scan CHEMISTRY ORDERABLES Final Resul t Performing Organization Address [facility] de Phone Number SCAN * XR - CHEST (08/24/2024 12:00 AM CDT) 08/24/2024 us Provider Scan IMG DIAGNOSTIC ORDERABLES Final Result Performing Organization Address [facility] de Phone Number SCAN * UR 24 HR CREATININE CLEARANCE (08/24/2024 12:00 AM CDT) 08/24/2024 us Provider Scan CHEMISTRY ORDERABLES Final Resul t Performing Organization Address [facility] de Phone Number SCAN * APTT (PTT) (08/24/2024 12:00 AM CDT) 08/24/2024 us Provider Scan HEMATOLOGY ORDERABLES Final Resu lt Performing Organization Address [facility]/ZIP Co de Phone Number SCAN * PROTIME (PT) (PROTHROMBIN TIME) (08/24/2024 12:00 AM CDT) INR 0.9 SCAN 08/24/2024 us Provider Scan HEMATOLOGY ORDERABLES Final Resu lt Performing Organization Address [facility] Co de Phone Number SCAN * LIPASE (08/24/2024 12:00 AM CDT) 08/24/2024 us Provider Scan CHEMISTRY ORDERABLES Final Resul t Performing Organization Address [facility] de Phone Number SCAN * HCG BETA SUBUNIT SERUM QUANT (08/24/2024 12:00 AM CDT) Blood us Sam Tavarez MD CHEMISTRY ORDERABLES Final Result Performing Organization Address [facility] Co de Phone Number SCAN * CMP (COMPREHENSIVE METABOLIC PANEL) (08/24/2024 12:00 AM CDT) 08/24/2024 us Provider Scan CHEMISTRY ORDERABLES Final Resul t Performing Organization Address [facility] Co de Phone Number SCAN * COMPLETE BLOOD COUNT (CBC) WITH DIFF (08/24/2024 12:00 AM CDT) 08/24/2024 us Provider Scan HEMATOLOGY ORDERABLES Final Resu lt Performing Organization Address City/[facility] Co de Phone Number SCAN from Last 3 Months Insurance MEDICAID [facility] MEDICAID [facility] Care Teams Streetcar Dispatcher Relationship Specialty Start Date End Date Sam Tavarez MD [address] [place] [address] PCP - General Internal Medicine 03/07/22
--- OUTSIDE RECORDS SUMMARY | 2024-09-14 15:07 | XMS_ITS | Clinical Summary ---
Author Organization [facility] Address [address] [place] [address] Care Team Providers Care Personnel Monitor Name Role Phone Sam Tavarez MD Primary Care Provider [phone] Allergies Active Allergy Reactions Criticality Noted Date Comments Latex Rash Medium 02/28/2011 Mom has the latex allergy Sulfa (Sulfonamide Antibiotics) Hives,Rash Medium 10/19/2020 Medications vit 57-qnzp-ovpna-dh a 27mg iron- 800 mcg-250 mg capsule [...] migrainosus, not intractable 09/04/2021 Anxiety disorder 09/15/2020 Encounters Date Type Department Care Team Description 08/25/2024 Telephone [facility] Cardiology [address] [place] [address] John Ribeiro MD from Last 3 Months Immunizations Immunization Administration Dates Next Due Tdap [...] often do you attend chur ch or church services? Never 06/07/2022 Do you belong to any clubs o r organizations such as tenriism groups, unions, fraternal or athletic groups, or [...] you are drinking? Patient does not drink 3 Q3: How often do you have si [...] staff should administer the PHQ-9) 2 06/07/2022 [facility]at [facility] Health - Occupational Stress [...] place to sleep or slept in a alf (including now)? No 06/07/2022 [place] Depression Scale Answer Date Recorded [place] Depression Scale Total 16 04/13/2021 The thought of harming myself has occurred to me . Never 04/13/2021 Personal Safety Answer Date Recorded Getting School Help Needed Not on file 08/12 Comments No Sex and Gender Information Value Date Recorded Sex Assigned at Not on file Legal Sex Female 6:53 PM INVESTMENT BANKING MANAGER Gender Identity Not on file Sexual Orientation [...] Epidur al N Livin g 6 8 MERCEDES DANIELS Sekou Khary, MD Complications:Pre eclampsia Delivery Location:[facility] Main C ampus ([facility]) Last Filed Vital Signs Vital Sign [...] HEPATITIS C ANTIBODY Routine 03/23/2022 11:32 AM INVESTMENT BANKING MANAGER Encounter for supervision of other normal in first trimester N. GONORRHOEAE/C. TRACHOMATIS AMPLIFICATION Routine 03/23/2022 11:14 AM INVESTMENT BANKING MANAGER Encounter for supervision of other normal in first trimester Screening for STD (sexually transmitted disease) from Last 3 Months or Most Recently Relevant to Health Maintenance Results * Hepatitis C antibody (03/23/2022 11:32 AM INVESTMENT BANKING MANAGER) Hep C Ab Nonreactive Nonreactive DOMO FRAZIER [...] on 2019. Blood 03/23/2022 11:3 2 AM INVESTMENT BANKING MANAGER 03/23/2022 3:36 PM INVESTMENT BANKING MANAGER Kiki Roberto CNM LAB MICROBIOLOGY - GENERAL OR DERABLES Final Result Performing Organization Address City/State/[facility] Co de Phone Number DOMO [address] [facility] Department [place] [address] * N. gonorrhoeae/C. trachomatis Amplification Vaginal (03/23/2022 11:14 AM INVESTMENT BANKING MANAGER) C. trachomatis Not Detected Not Detected DOMO FRAZIER Comment:Testing performed by : [facility], [address] [place] [address]., [address] N. gonorrhoeae Not Detected Not Detected DOMO FRAZIER Comment: Interpretive Data Testing performed by the [facility]. This assay detects Chlamydia trachomatis and [...] last revised on 2019. Testing performed by: [facility], [address] [place] [address]., [address] Vaginal (None) 03/23/2022 11 :14 AM INVESTMENT BANKING MANAGER 03/23/2022 2:02 PM INVESTMENT BANKING MANAGER Kiki Roberto CNM LAB MICROBIOLOGY - GENERAL OR DERABLES Final Result DOMO [address] [facility] Department [place] [address] from Last 3 Months or Most Recently Relevant to Health Maintenance Insurance [facility] AETNA [facility] Advance Directives For more information, please contact: [phone] * Full Code (Latest Code Status on [...] n case of cardiopulmonary arrest Care Teams Personnel Monitor Relationship Specialty Start Date End Date Sam Tavarez MD [address] [place] [address] PCP - General Internal Medicine 01/04/22
--- OUTSIDE RECORDS SUMMARY | 2024-09-14 15:07 | XMS_ITS | Clinical Summary ---
Author Organization [facility] Address [address] [place] [address] Care Team Providers Care Golf Course Starter Name Role Phone Loco Cardoza DO Primary Care Provider Source Comments [facility],non-owned Affiliates and Associated Physician Practices is amultiple site organization consisting of ambulatory clinics and hospital sitesin [place], [place], [place] and [place]. This disclosure is being madepursuant to the Care Everywhere program and may not contain all information available regarding this patient. Last updated 17.[facility] Allergies Active Allergy Reactions Criticality Noted Date [...] Insurance coverage problems 07/19/2016 09/30/2017 Overview (08/21/2016): [place] with very limited acne formulary and step [...] Virus Toma valent Vaccine 03/12/2013,10/31/2012,09/05/2012 INFLUENZA A [id number] VACCINE 12/31/2008 INFLUENZA VACCINE, QUADR. (F LUZONE; [...] on file Legal Sex Female 5:41 AM COMPUTATIONAL THEORY SCIENTIST Gender Identity Not on file Sexual Orientation Not on file Last Filed Vital Signs Vital Sign Reading Time Taken Comments Blood Pressure 134/87 09/30/2018 2:12 PM CDT Pulse 89 09/30/2018 2:12 PM CDT Temperature 36.2 C (97.1 F) 09/30/2018 2:12 PM CDT Respiratory Rate 32 02/19/2017 11:15 AM COMPUTATIONAL THEORY SCIENTIST Oxygen Saturation 99% 02/19/2017 10:43 AM COMPUTATIONAL THEORY SCIENTIST Inhaled Oxygen Concentration 100% 02/19/2017 1 0:43 AM COMPUTATIONAL THEORY SCIENTIST Weight 70.8 kg (156 lb) 09/30/2018 2:12 [...] car Lifestyle On track( 019 9:09 AM COMPUTATIONAL THEORY SCIENTIST) Lyndsey Fraire, RN Insurance MEDICAID - OUT OF STATE [facility] MEDICAID - OUT OF [facility] MEDICAID - [place] * Guarantor: KARLEY WASSERMAN Account Type Relation to Patient Date of Phone Billing Address Personal/Family [address] [place] [id number] [place] [address] Care Teams Golf Course Starter Relationship Specialty Start Date End Date Loco Cardoza DO PCP - General 06/11/20
--- OUTSIDE RECORDS SUMMARY | 2024-09-14 15:07 | XMS_ITS | Referral Summary ---
Author Organization [facility] Address [address] [place] [address] Care Team Providers Care Client Relationship Executive Name Role Phone Sam Tavarez MD Primary Care Provider [phone] Encounters Date Type Department Care Team Description 08/25/2024 Telephone [facility] Medical Group Cardiology [address] [place] [address] John Ribeiro MD from Last 3 Months Allergies Active Allergy Reactions Criticality Noted Date Comments Latex Rash Medium 02/28/2011 Mom has the latex allergy Sulfa (Sulfonamide Antibiotics) Hives,Rash Medium 10/19/2020 Medications vit 10-qain-dckpf-dh a 27mg iron- 800 mcg-250 mg capsule [...] often do you attend chur ch or orthodox services? Never 06/07/2022 Do you belong to any clubs o r organizations such as buddhist groups, unions, fraternal or athletic groups, or [...] staff should administer the PHQ-9) 2 06/07/2022 [facility] - Occupational Stress Questionnaire Answer Date Recorded [...] place to sleep or slept in a fpc (including now)? No 06/07/2022 [place] Depression Scale Answer Date Recorded [place] Depression Scale Total 16 04/13/2021 The thought of harming myself has occurred to me . Never 04/13/2021 Personal Safety Answer Date Recorded Getting School Help Needed Not on file 08/12 Comments No Sex and Gender Information Value Date Recorded Sex Assigned at Not on file Legal Sex Female 6:53 PM CREWMAN MAIN BATTLE TANK Gender Identity Not on file Sexual Orientation [...] HEPATITIS C ANTIBODY Routine 03/23/2022 11:32 AM CREWMAN MAIN BATTLE TANK Encounter for supervision of other normal in first trimester N. GONORRHOEAE/C. TRACHOMATIS AMPLIFICATION Routine 03/23/2022 11:14 AM CREWMAN MAIN BATTLE TANK Encounter for supervision of other normal in first trimester Screening for STD (sexually transmitted disease) from Last 3 Months or Most Recently Relevant to Health Maintenance Results * Hepatitis C antibody (03/23/2022 11:32 AM CREWMAN MAIN BATTLE TANK) Hep C Ab Nonreactive Nonreactive DOMO FRAZIER [...] on 2019. Blood 03/23/2022 11:3 2 AM CREWMAN MAIN BATTLE TANK 03/23/2022 3:36 PM CREWMAN MAIN BATTLE TANK Kiki RODRIGUEZ LAB MICROBIOLOGY - GENERAL OR DERABLES Final Result DOMO FRAZIER [address] [facility] Department [place] [address] * N. gonorrhoeae/C. trachomatis Amplification Vaginal (03/23/2022 11:14 AM CREWMAN MAIN BATTLE TANK) C. trachomatis Not Detected Not Detected DOMO FRAZIER Comment:Testing performed by : [address] [address] N. gonorrhoeae Not Detected Not Detected DOMO FRAZIER Comment: Interpretive Data Testing performed by the [facility]. This assay detects Chlamydia trachomatis and [...] last revised on 2019. Testing performed by: [address] [address] Vaginal (None) 03/23/2022 11 :14 AM CREWMAN MAIN BATTLE TANK 03/23/2022 2:02 PM CREWMAN MAIN BATTLE TANK Kiki Roberto CNM LAB MICROBIOLOGY - GENERAL OR DERABLES Final Result DOMO [address] [facility] Department [place] [address] from Last 3 Months or Most Recently Relevant to Health Maintenance Insurance [facility] [place] Advance Directives For more information, please contact: [phone] * Full Code (Latest Code Status on [...] n case of cardiopulmonary arrest Care Teams Client Relationship Executive Relationship Specialty Start Date End Date Sam Tavarez MD [address] [place] [address] PCP - General Internal Medicine 01/04/22
[2024-09-14 17:22] LABS: Hematocrit 34.4 % (37.0-47.0); Hemoglobin 11.1 g/dL (12.0-15.0); Immature Granulocyte Percent A 0.8 % (0-0.5); Lymphocytes Absolute Auto 2.10 K/mm3 (0.9-3.2); Mean Corpuscular HGB Conc 32.3 g/dl (32-36); Mean Corpuscular Hemoglobin 28.3 pg (26-34); Mean Corpuscular Volume 87.8 fl (80-100); Nucleated Red Blood Cells Absolute Auto 0.000 K/mm3 (0.0-0.012); Nucleated Red Blood Cells Perc 0.0 % (0.0-0.2); Platelet Count Result 315 k/mm3 (150-375); Red Blood Count 3.92 M/mm3 (4.2-5.4); White Blood Count 16.6 K/mm3 (4.5-10.0)
[2024-09-14 17:34] LABS: Alanine Aminotransferase 19 U/L (6-35); Albumin Level 4.1 g/dL (3.5-5.1); Alkaline Phosphatase 122 U/L (38-126); Anion Gap 10 mmol/L (4-12); Aspartate Amino Transferase 21 U/L (14-36); Bilirubin,Total 0.3 mg/dL (0.2-1.3); Blood Urea Nitrogen 4 mg/dL (7-17); Calcium 9.3 mg/dL (8.4-10.2); Carbon Dioxide 23 mmol/L (22-30); Chloride 103 mmol/L (98-107); Estimated CRCL calculation 176 ml/min; Estimated Glomerular Filt Rate > 60; Glucose 85 mg/dL (65-110); Potassium 4.2 mmol/L (3.4-5.0); Sodium 136 mmol/L (137-145); Total Protein 7.8 g/dL (6.3-8.2)
--- OUTSIDE RECORDS SUMMARY | 2024-09-14 17:50 | XMS_ITS | Clinical Summary ---
Author Organization [facility] Address [address] [facility] [place] [address] Care Team Providers Care Framing Mill Supervisor Name Role Phone Loco Cardoza DO Primary Care Provider Source Comments [facility],non-owned Affiliates and Associated Physician Practices is amultiple site organization consisting of ambulatory clinics and hospital sitesin [place], [place], [place] and [place]. This disclosure is being madepursuant to the Care Everywhere program and may not contain all information available regarding this patient. Last updated 17.[facility] Allergies Active Allergy Reactions Criticality Noted Date [...] Insurance coverage problems 07/19/2016 09/30/2017 Overview (08/21/2016): [place] with very limited acne formulary and step [...] Virus Toma valent Vaccine 03/12/2013,10/31/2012,09/05/2012 INFLUENZA A [id number] VACCINE 12/31/2008 INFLUENZA VACCINE, QUADR. (F LUZONE; [...] on file Legal Sex Female 5:41 AM GLOBAL CHIEF CREATIVE OFFICER Gender Identity Not on file Sexual Orientation Not on file Last Filed Vital Signs Vital Sign Reading Time Taken Comments Blood Pressure 134/87 09/30/2018 2:12 PM CDT Pulse 89 09/30/2018 2:12 PM CDT Temperature 36.2 C (97.1 F) 09/30/2018 2:12 PM CDT Respiratory Rate 32 02/19/2017 11:15 AM GLOBAL CHIEF CREATIVE OFFICER Oxygen Saturation 99% 02/19/2017 10:43 AM GLOBAL CHIEF CREATIVE OFFICER Inhaled Oxygen Concentration 100% 02/19/2017 1 0:43 AM GLOBAL CHIEF CREATIVE OFFICER Weight 70.8 kg (156 lb) 09/30/2018 2:12 [...] car Lifestyle On track( 019 9:09 AM GLOBAL CHIEF CREATIVE OFFICER) Lyndsey Fraire, RN Insurance MEDICAID - OUT OF STATE [facility] MEDICAID - OUT OF [facility] MEDICAID - [place] * Guarantor: KARLEY WASSERMAN Account Type Relation to Patient Date of Phone Billing Address Personal/Family [address] [place] [id number] [place] [address] Care Teams Framing Mill Supervisor Relationship Specialty Start Date End Date Loco Cardoza DO PCP - General 06/11/20
--- OUTSIDE RECORDS SUMMARY | 2024-09-14 17:51 | XMS_ITS | Clinical Summary ---
Author Organization [facility] Address [address] [place] [address] Care Team Providers Care Test Technician Name Role Phone Sam Tavarez MD Primary Care Provider [phone]- [phone] Allergies Active Allergy Reactions Criticality Noted Date Comments Latex Rash Medium 02/28/2011 Mom has the latex allergy Sulfa (Sulfonamide Antibiotics) Hives,Rash Medium 10/19/2020 Medications vit 65-pelb-kspyg-dh a 27mg iron- 800 mcg-250 mg capsule [...] Type Department Care Team Description 08/25/2024 Telephone [facility] Medical Group Cardiology [address] [place] [address] John Ribeiro MD from Last [...] often do you attend chur ch or mandaeism services? Never 06/07/2022 Do you belong to any clubs o r organizations such as yazdanism groups, unions, fraternal or athletic groups, or [...] staff should administer the PHQ-9) 2 06/07/2022 [facility] of Occupat ional Health - Occupational [...] place to sleep or slept in a custodial (including now)? No 06/07/2022 [place] Depression Scale Answer Date Recorded [place] Depression Scale Total 16 04/13/2021 The thought of harming myself has occurred to me . Never 04/13/2021 Personal Safety Answer Date Recorded Getting School Help Needed Not on file 08/12 Comments No Sex and Gender Information Value Date Recorded Sex Assigned at Not on file Legal Sex Female 6:53 PM NIGHT STOCKER Gender Identity Not on file Sexual Orientation [...] DANIELS Sekou Khary, MD Complications:Pre eclampsia Delivery Location:[facility] Main C ampus ([facility]) Last Filed Vital Signs Vital [...] HEPATITIS C ANTIBODY Routine 03/23/2022 11:32 AM NIGHT STOCKER Encounter for supervision of other normal in first trimester N. GONORRHOEAE/C. TRACHOMATIS AMPLIFICATION Routine 03/23/2022 11:14 AM NIGHT STOCKER Encounter for supervision of other normal in first trimester Screening for STD (sexually transmitted disease) from Last 3 Months or Most Recently Relevant to Health Maintenance Results * Hepatitis C antibody (03/23/2022 11:32 AM NIGHT STOCKER) Hep C Ab Nonreactive Nonreactive DOMO FRAZIER [...] on 2019. Blood 03/23/2022 11:3 2 AM NIGHT STOCKER 03/23/2022 3:36 PM NIGHT STOCKER Kiki Roberto CNM LAB MICROBIOLOGY - GENERAL OR DERABLES Final Result Performing Organization Address City/State/[facility] Co de Phone Number DOMO [address] [facility] Department [place] [address] * N. gonorrhoeae/C. trachomatis Amplification Vaginal (03/23/2022 11:14 AM NIGHT STOCKER) C. trachomatis Not Detected Not Detected DOMO FRAZIER Comment:Testing performed by : [facility], [address] [place] [address]., [address] N. gonorrhoeae Not Detected Not Detected DOMO FRAZIER Comment: Interpretive Data Testing performed by [facility]. This assay detects Chlamydia [...] last revised on 2019. Testing performed by: [facility], [address] [place] [address]., [address] Vaginal (None) 03/23/2022 11 :14 AM NIGHT STOCKER 03/23/2022 2:02 PM NIGHT STOCKER Kiki Roberto CNM LAB MICROBIOLOGY - GENERAL OR DERABLES Final Result DOMO [address] [facility] Department [place] [address] from Last 3 Months or Most Recently Relevant to Health Maintenance Insurance [facility] AETNA [facility] Advance Directives For more information, please contact: [phone] * Full Code (Latest Code Status on [...] n case of cardiopulmonary arrest Care Teams Test Technician Relationship Specialty Start Date End Date Sam Tavarez MD [address] [place] [address] PCP - General Internal Medicine 01/04/22
--- OUTSIDE RECORDS SUMMARY | 2024-09-14 17:51 | XMS_ITS | Clinical Summary ---
Author Organization [facility] Address [address] [place] [address] Phone Care Team Providers Care Weigh Tank Operator Name Role Phone Sam Tavarez MD Primary Care Provider [phone] Allergies Active Allergy Reactions Criticality Noted Date [...] the past 12 months has th e YR Free, gas, oil, or water [employer] threatened to shut off services in your [...] How often do you attend chur or mormonism services? 1 to 4 times per year 07/24/2023 Do you belong to any clubs o r organizations such as yarsani groups, unions, fraternal or athletic groups, or [...] Total Score - Questions 1-9 0 01/11 [facility] of Occupat ional Health - [...] any time in the past 12 m [facility], were you homeless or living in a [...] Comments Blood Pressure 120/65 04/15/2024 1:32 PM UNIVERSAL WINDING MACHINE OPERATOR Pulse 82 04/15/2024 1:32 PM UNIVERSAL WINDING MACHINE OPERATOR Temperature 37.2 C (99 F) 04/15/2024 1:32 PM UNIVERSAL WINDING MACHINE OPERATOR Respiratory Rate 16 04/15/2024 1:32 PM UNIVERSAL WINDING MACHINE OPERATOR Oxygen Saturation 100% 04/15/2024 1:32 PM UNIVERSAL WINDING MACHINE OPERATOR Inhaled Oxygen Concentration - - Weight 81.6 kg (180 lb) 04/15/2024 12:17 PM UNIVERSAL WINDING MACHINE OPERATOR Height 165.1 cm (5' 5) 04/15/2024 12:17 PM UNIVERSAL WINDING MACHINE OPERATOR Body Mass Index 29.95 04/15/2024 12:17 PM UNIVERSAL WINDING MACHINE OPERATOR Plan of Treatment Health Maintenance Due Date [...] URINE ORDERABLES Final Result Performing Organization Address [facility] de Phone Number SCAN * TROPONIN I (TRP I) (08/25/2024 12:00 AM CDT) Only the most recent of2 resultswithin the time period is included. 08/25/2024 us Provider Scan CHEMISTRY ORDERABLES Final Resul t Performing Organization Address [facility] de Phone Number SCAN * XR - CHEST (08/24/2024 12:00 AM CDT) 08/24/2024 us Provider Scan IMG DIAGNOSTIC ORDERABLES Final Result Performing Organization Address [facility] de Phone Number SCAN * UR 24 HR CREATININE CLEARANCE (08/24/2024 12:00 AM CDT) 08/24/2024 us Provider Scan CHEMISTRY ORDERABLES Final Resul t Performing Organization Address [facility] de Phone Number SCAN * APTT (PTT) (08/24/2024 12:00 AM CDT) 08/24/2024 us Provider Scan HEMATOLOGY ORDERABLES Final Resu lt Performing Organization Address [facility]/ZIP Co de Phone Number SCAN * PROTIME (PT) (PROTHROMBIN TIME) (08/24/2024 12:00 AM CDT) INR 0.9 SCAN 08/24/2024 us Provider Scan HEMATOLOGY ORDERABLES Final Resu lt Performing Organization Address [facility] Co de Phone Number SCAN * LIPASE (08/24/2024 12:00 AM CDT) 08/24/2024 us Provider Scan CHEMISTRY ORDERABLES Final Resul t Performing Organization Address [facility] de Phone Number SCAN * HCG BETA SUBUNIT SERUM QUANT (08/24/2024 12:00 AM CDT) Blood us Sam Tavarez MD CHEMISTRY ORDERABLES Final Result Performing Organization Address [facility] Co de Phone Number SCAN * CMP (COMPREHENSIVE METABOLIC PANEL) (08/24/2024 12:00 AM CDT) 08/24/2024 us Provider Scan CHEMISTRY ORDERABLES Final Resul t Performing Organization Address [facility] Co de Phone Number SCAN * COMPLETE BLOOD COUNT (CBC) WITH DIFF (08/24/2024 12:00 AM CDT) 08/24/2024 us Provider Scan HEMATOLOGY ORDERABLES Final Resu lt Performing Organization Address City/[facility] Co de Phone Number SCAN from Last 3 Months Insurance MEDICAID [facility] MEDICAID [facility] Care Teams Weigh Tank Operator Relationship Specialty Start Date End Date Sam Tavarez MD [address] [place] [address] PCP - General Internal Medicine 03/07/22
--- OUTSIDE RECORDS SUMMARY | 2024-09-14 17:51 | XMS_ITS | Referral Summary ---
Author Organization [facility] Address [address] [place] [address] Care Team Providers Care Registered Nurse Maternity Name Role Phone Sam Tavarez MD Primary Care Provider [phone] Encounters Date Type Department Care Team Description 08/25/2024 Telephone [facility] Medical Group Cardiology [address] [place] [address] John Ribeiro MD from Last 3 Months Allergies Active Allergy Reactions Criticality Noted Date Comments Latex Rash Medium 02/28/2011 Mom has the latex allergy Sulfa (Sulfonamide Antibiotics) Hives,Rash Medium 10/19/2020 Medications vit 72-gbba-ejkzn-dh a 27mg iron- 800 mcg-250 mg capsule [...] often do you attend chur ch or bahai services? Never 06/07/2022 Do you belong to any clubs o r organizations such as yazidism groups, unions, fraternal or athletic groups, or [...] staff should administer the PHQ-9) 2 06/07/2022 [facility] - Occupational Stress Questionnaire Answer Date Recorded [...] place to sleep or slept in a retirement (including now)? No 06/07/2022 Napavine Depression Scale Answer Date Recorded [place]av[place] Depression Scale Total 16 04/13/2021 The thought of harming myself has occurred to me . Never 04/13/2021 Personal Safety Answer Date Recorded Getting School Help Needed Not on file 08/12 Comments No Sex and Gender Information Value Date Recorded Sex Assigned at Not on file Legal Sex Female 6:53 PM RETAIL CHAIN STORE AREA SUPERVISOR Gender Identity Not on file Sexual Orientation [...] HEPATITIS C ANTIBODY Routine 03/23/2022 11:32 AM RETAIL CHAIN STORE AREA SUPERVISOR Encounter for supervision of other normal in first trimester N. GONORRHOEAE/C. TRACHOMATIS AMPLIFICATION Routine 03/23/2022 11:14 AM RETAIL CHAIN STORE AREA SUPERVISOR Encounter for supervision of other normal in first trimester Screening for STD (sexually transmitted disease) from Last 3 Months or Most Recently Relevant to Health Maintenance Results * Hepatitis C antibody (03/23/2022 11:32 AM RETAIL CHAIN STORE AREA SUPERVISOR) Hep C Ab Nonreactive Nonreactive DOMO FRAZIER [...] on 2019. Blood 03/23/2022 11:3 2 AM RETAIL CHAIN STORE AREA SUPERVISOR 03/23/2022 3:36 PM RETAIL CHAIN STORE AREA SUPERVISOR Kiki RODRIGUEZ LAB MICROBIOLOGY - GENERAL OR DERABLES Final Result DOMO FRAZIER [address] [facility] [place] [address] * N. gonorrhoeae/C. trachomatis Amplification Vaginal (03/23/2022 11:14 AM RETAIL CHAIN STORE AREA SUPERVISOR) C. trachomatis Not Detected Not Detected DOMO FRAZIER Comment:Testing performed by : [address] [address] N. gonorrhoeae Not Detected Not Detected DOMO FRAZIER Comment: Interpretive Data Testing performed by the [facility]. This assay detects Chlamydia trachomatis [...] last revised on 2019. Testing performed by: [address] [address] Vaginal (None) 03/23/2022 11 :14 AM RETAIL CHAIN STORE AREA SUPERVISOR 03/23/2022 2:02 PM RETAIL CHAIN STORE AREA SUPERVISOR Kiki Roberto CNM LAB MICROBIOLOGY - GENERAL OR DERABLES Final Result DOMO [address] [facility] [place] [address] from Last 3 Months or Most Recently Relevant to Health Maintenance Insurance [facility] A[place] BETTER TH [place] Advance Directives For more information, please contact: [phone] * Full Code (Latest Code Status on [...] n case of cardiopulmonary arrest Care Teams Registered Nurse Maternity Relationship Specialty Start Date End Date Sam Tavarez MD [address] [place] [address] PCP - General Internal Medicine 01/04/22
[2024-09-14] MEDS: ACETAMINOPHEN 500 MG TABLET 1000 MG PO (17:57)
[2024-09-14] MEDS: SODIUM CHLORIDE 0.9% IV 1,000 ML 999 ML IV CONT (18:36)
[2024-09-14] MEDS: METOCLOPRAMIDE HCL INJ 10 MG/2 ML VIAL IV PUSH (18:36)
[2024-09-14 18:46] LABS: BEDSIDEPREGUCG Positive (Negative)
[2024-09-14 19:37] LABS: Non Pathogenic Casts 0-2
[2024-09-14 19:45] LABS: Add Urine Microscopic? NO; Appearance Urine Clear (Clear); Glucose Urine UA Negative (Negative); Leukocyte Esterase Ur Negative LEU/UL (Negative); Nitrate Urine Negative (Negative); Specific Grav Ur 1.012 (1.001-1.035)
[2024-09-14 20:19] VITALS: BP 123/76; PULSE 83; RESP 17; O2SAT 99
[2024-09-14 20:20] VITALS: BP 123/76; PULSE 83; RESP 17; O2SAT 99
== END 2024-09-14 20:21 | disposition home or self-care (01) ==
PROVIDERS: Emergency Provider Emergency Medicine; PCP Internal Medicine
DX: G43.909 Migraine, unspecified, not intractable, without status migrainosus (principal); F17.210 Nicotine dependence, cigarettes, uncomplicated; F41.9 Anxiety disorder, unspecified; F32.A Depression, unspecified; J45.909 Unspecified asthma, uncomplicated
CPT/HCPCS: 36415; 80053; 81003; 81025; 85025; 96361; 96374; 96375; 99284; A9270; J1200; J2765; J7030

== ENCOUNTER 2024-12-13 21:41 | Observation (INO) | payer OTHER, SELFPAY ==
[2024-12-13] VITALS (25 sets, daily range): BP systolic 119–136; BP diastolic 60–96; PULSE 99–112; RESP 20; TEMP 36.6; O2SAT 95–100; BMI 33.3
--- NOTE | 2024-12-13 21:12 | ECG_ITS ---
Test Date: 2024-12-13 21:20:55 Measurements Intervals [place] Rate: 101 P: 43 OR: 135 QRS: -5 QRSD: 112 T: 21 QT: 347 QTc: 451 Interpretive Statements SINUS TACHYCARDIA MODERATE INTRAVENTRICULAR CONDUCTION DELAY [110+ ms QRS DURATION] MODERATE VOLTAGE CRITERIA FOR LVH, CONSIDER NORMAL VARIANT [MEETS CRITERIA IN ONE OF: R(aVL), S(V1), R(V5), R(V5/V6)+S(V1)] ABNORMAL RHYTHM ECG Compared to ECG 08/25/2024 00:22:10 Intraventricular conduction delay now present Sinus rhythm no longer present Electronically Signed On 12-14-2024 06:40:02 DIE MAINTENANCE by Missy Stacy M.D.
[2024-12-13 21:37] LABS: Hematocrit 31.5 % (37.0-47.0); Hemoglobin 10.2 g/dL (12.0-15.0); Immature Granulocyte Percent A 1.2 % (0-0.5); Lymphocytes Absolute Auto 2.98 K/mm3 (0.9-3.2); Mean Corpuscular HGB Conc 32.4 g/dl (32-36); Mean Corpuscular Hemoglobin 29.4 pg (26-34); Mean Corpuscular Volume 90.8 fl (80-100); Nucleated Red Blood Cells Absolute Auto 0.000 K/mm3 (0.0-0.012); Nucleated Red Blood Cells Perc 0.0 % (0.0-0.2); Platelet Count Result 287 k/mm3 (150-375); Red Blood Count 3.47 M/mm3 (4.2-5.4); White Blood Count 15.9 K/mm3 (4.5-10.0)
--- NOTE | 2024-12-13 21:38 | PC.NURSE ---
RN spoke with OB Nurse. Patient is transferring via wheelchair back to OB. MD Guzman cleared patient's EKG and stated to bring patient back to OB.
[2024-12-13 21:50] LABS: INR 1.0; Partial Thromboplastin Time 23.7 Seconds (22.3-36.8); Prothrombin Time 13.6 Seconds (11.1-14.7)
--- OUTSIDE RECORDS SUMMARY | 2024-12-13 21:50 | XMS_ITS | Clinical Summary ---
Author Organization [facility] Address [address] [place] [address] Care Team Providers Care Grades 7 And 8 Visiting Teacher Name Role Phone Sam Tavarez MD Primary Care Provider [phone] Allergies Active Allergy Reactions Criticality Noted Date Comments Latex Rash Medium 02/28/2011 Mom has the latex allergy Sulfa (Sulfonamide Antibiotics) Hives,Rash Medium 10/19/2020 Medications vit 65-spcr-oygmc-dh a 27mg iron- 800 mcg-250 mg capsule [...] Encounters Date Type Department Care Team Description 10/21/2024 Telephone [facility] Medical Group Cardiology [address] [place] [address] Kiki Reeder MA Medical Records Request from Last 3 Months Immunizations Immunization Administration [...] oz pur e alcohol) Social Connection and Isolation Panel Answer Date Recorded In a typical week, how many times do you talk on the phone with family, friends, or neighbors? More than three times a week 06/07/2022 How often do you get togethe r with friends or relatives? More than three times a week 06/07/2022 How often do you attend chur ch or baptist services? Never 06/07/2022 Do you belong to any clubs o r organizations such as cheondoism groups, unions, fraternal or athletic groups, or [...] staff should administer the PHQ-9) 2 06/07/2022 [facility] [place] of Occupat ional Health - Occupational Stress [...] place to sleep or slept in a snf (including now)? No 06/07/2022 [place] Depression Scale Answer Date Recorded [place] Depression Scale Total 16 04/13/2021 The thought of harming myself has occurred to me . Never 04/13/2021 Personal Safety Answer Date Recorded Getting School Help Needed Not on file 08/12 Comments No Sex and Gender Information Value Date Recorded Sex Assigned at Not on file Legal Sex Female 6:53 PM MOTOR DRIVER Gender Identity Not on file Sexual Orientation [...] N Livin g 6 8 MERCEDES DANIELS , Spenser Frazier MD Complications:Pre eclampsia Delivery [facility] Main C ampus ([facility]) Last Filed Vital Signs Vital [...] HEPATITIS C ANTIBODY Routine 03/23/2022 11:32 AM MOTOR DRIVER Encounter for supervision of other normal in first trimester N. GONORRHOEAE/C. TRACHOMATIS AMPLIFICATION Routine 03/23/2022 11:14 AM MOTOR DRIVER Encounter for supervision of other normal in first trimester Screening for STD (sexually transmitted disease) from Last 3 Months or Most Recently Relevant to Health Maintenance Results * Hepatitis C antibody (03/23/2022 11:32 AM MOTOR DRIVER) Hep C Ab Nonreactive Nonreactive DOMO FRAZIER [...] on 2019. Blood 03/23/2022 11:3 2 AM MOTOR DRIVER 03/23/2022 3:36 PM MOTOR DRIVER Kiki Roberto CNM LAB MICROBIOLOGY - GENERAL OR DERABLES Final Result DOMO FRAZIER [address] [facility] Department [place] [address] * N. gonorrhoeae/C. trachomatis Amplification Vaginal (03/23/2022 11:14 AM MOTOR DRIVER) C. trachomatis Not Detected Not Detected DOMO FRAZIER Comment:Testing performed by : [facility], [address] [place] [address]., [address] N. gonorrhoeae Not Detected Not Detected DOMO FRAZIER Comment: Interpretive Data Testing performed by the [facility]. This assay detects Chlamydia trachomatis [...] on 2019. Testing performed by: [facility], [address] [place] [address]., [address] Vaginal (None) 03/23/2022 11 :14 AM MOTOR DRIVER 03/23/2022 2:02 PM MOTOR DRIVER Kiki RODRIGUEZ LAB MICROBIOLOGY - GENERAL OR DERABLES Final Result [facility] [address] [facility] Department [place] [address] from Last 3 Months or Most Recently Relevant to Health Maintenance Insurance [facility] [place] [address] AETNA BETTER [facility] Advance Directives For more information, please contact: [phone] * Full Code (Latest Code Status on [...] n case of cardiopulmonary arrest Care Teams Grades 7 And 8 Visiting Teacher Relationship Specialty Start Date End Date Sam Tavarez MD [address] [place] [address] PCP - General Internal Medicine 01/04/22
--- OUTSIDE RECORDS SUMMARY | 2024-12-13 21:50 | XMS_ITS | Clinical Summary ---
Author Organization [facility] Address [address] [facility] [place] [address] Care Team Providers Care Head Mixer Name Role Phone Loco Cardoza DO Primary Care Provider Source Comments [facility],non-owned Affiliates and Associated Physician Practices is amultiple site organization consisting of ambulatory clinics and hospital sitesin [place], [place], [place]. This disclosure is being madepursuant to the Care Everywhere program and may not contain all information available regarding this patient. Last updated 17.[facility] Allergies Active Allergy Reactions Criticality Noted Date [...] Insurance coverage problems 07/19/2016 09/30/2017 Overview (08/21/2016): [place] with very limited acne formulary and step [...] Virus Toma valent Vaccine 03/12/2013,10/31/2012,09/05/2012 INFLUENZA A [id number] VACCINE 12/31/2008 INFLUENZA VACCINE, QUADR. (F LUZONE; [...] on file Legal Sex Female 5:41 AM ENROLLMENT MANAGEMENT DIRECTOR Gender Identity Not on file Sexual Orientation Not on file Last Filed Vital Signs Vital Sign Reading Time Taken Comments Blood Pressure 134/87 09/30/2018 2:12 PM CDT Pulse 89 09/30/2018 2:12 PM CDT Temperature 36.2 C (97.1 F) 09/30/2018 2:12 PM CDT Respiratory Rate 32 02/19/2017 11:15 AM ENROLLMENT MANAGEMENT DIRECTOR Oxygen Saturation 99% 02/19/2017 10:43 AM ENROLLMENT MANAGEMENT DIRECTOR Inhaled Oxygen Concentration 100% 02/19/2017 1 0:43 AM ENROLLMENT MANAGEMENT DIRECTOR Weight 70.8 kg (156 lb) 09/30/2018 2:12 [...] Additional history exists CHLAMYDIA/GONORRHEA SCREENING 03/23/2023 03/23/2022 DEPRESSION SCREENING 02/12/2024 COVID-19 VACCINE (1 - 2023-2 5 season) 2024 INFLUENZA VACCINE (#1) 2024 8, 12/20/2016, 11/24/2015, [...] car Lifestyle On track( 019 9:09 AM ENROLLMENT MANAGEMENT DIRECTOR) Lyndsey Fraire, RN Insurance MEDICAID - OUT OF STATE [facility] MEDICAID - OUT OF [facility] MEDICAID - [place] * Guarantor: KARLEY WASSERMAN Account Type Relation to Patient Date of Phone Billing Address Personal/Family [address] [place] [id number] [place] [address] Care Teams Head Mixer Relationship Specialty Start Date End Date Loco Cardoza DO PCP - General 06/11/20
[2024-12-13 21:55] LABS: Alanine Aminotransferase 24 U/L (6-35); Albumin Level 3.8 g/dL (3.5-5.1); Alkaline Phosphatase 129 U/L (38-126); Anion Gap 7 mmol/L (4-12); Aspartate Amino Transferase 30 U/L (14-36); Bilirubin,Total 0.3 mg/dL (0.2-1.3); Blood Urea Nitrogen 5 mg/dL (7-17); Calcium 8.8 mg/dL (8.4-10.2); Carbon Dioxide 23 mmol/L (22-30); Chloride 105 mmol/L (98-107); Estimated CRCL calculation 198 ml/min; Estimated Glomerular Filt Rate > 60; Glucose 103 mg/dL (65-110); Lipase 88 U/L (23-300); Potassium 3.8 mmol/L (3.4-5.0); Sodium 135 mmol/L (137-145); Total Protein 7.0 g/dL (6.3-8.2)
[2024-12-13 22:06] LABS: Troponin I < 0.012 ng/mL (0.000-0.034)
[2024-12-13 22:27] LABS: Add Urine Microscopic? NO; Appearance Urine Clear (Clear); Glucose Urine UA Negative (Negative); Leukocyte Esterase Ur Negative LEU/UL (Negative); Nitrate Urine Negative (Negative); Specific Grav Ur 1.008 (1.001-1.035)
[2024-12-13 23:15] LABS: Total Protein Urine Random 13 mg/dL; Ur Ttl Prot Creatinine Ratio 0.34 mg/mg (0-0.20)
--- NOTE | 2024-12-13 23:26 | OBADM ---
This patient, Karley Wasserman, admitted to the OB room Labor/Delivery/Recovery 118 for observation. Patient/family oriented to hospital policies and general routines including ID bracelet, bed and alarms, visiting hours, pain management, procedures, bathroom and other care routines, personal items, smoking policy, room service/diet, and visiting hours. Patient/Family are encouraged to report perceived risks to care and to ask questions if they do not understand what they are told or what they should do.
--- NOTE | 2024-12-15 07:50 | P.PNOB_ITS ---
OB - Triage/Final Diagnosis Visit Information Reason for evaluation: threatened labor Comments/Additional reasons for admission: I have assessed the risk for this patient, Karley Wasserman, and determined that she would benefit from observation care. Evaluation Laboratory results: Laboratory Tests 12/13/24 12/13/24 21:30 22:13 WBC 15.9 H RBC 3.47 L Hgb 10.2 L Hct 31.5 L MCV 90.8 MCH 29.4 MCHC 32.4 RDW 13.2 Plt Count 287 MPV 8.7 Immature Gran % (Auto) 1.2 H Neut % (Auto) 74.1 H Lymph % (Auto) 18.7 [place] % (Auto) 4.8 Eos % (Auto) 0.9 Baso % (Auto) 0.3 Lymph # (Auto) 2.98 [place] # (Auto) 0.8 H Eos # (Auto) 0.1 Baso # (Auto) 0.0 Abs Immat Gran (auto) 0.19 H Absolute Neuts (auto) 11.8 H Absolute Nucleated RBC 0.000 Nucleated RBC % 0.0 PT 13.6 INR 1.0 APTT 23.7 Sodium 135 L Potassium 3.8 Chloride 105 Carbon Dioxide 23 Anion Gap 7 BUN 5 L Creatinine 0.41 L Estim Creat Clear Calc 198 Estimated GFR > 60 Glucose 103 Calcium 8.8 Total Bilirubin 0.3 AST 30 ALT 24 Alkaline Phosphatase 129 H Troponin I < 0.012 Total Protein 7.0 Albumin 3.8 Lipase 88 Urine Color Yellow Urine Appearance Clear Urine pH 6.5 Ur Specific [place] 1.008 Urine Protein Negative Urine Glucose (UA) Negative Urine Ketones Negative Ur Blood (Man) Negative Urine Nitrate Negative Urine Bilirubin Negative Urine Urobilinogen 0.2 Leukocyte Esterase Rfl Negative U Random Total Protein 13 Urine Creatinine 38.2 Protein/Creat Ratio 2 0.34 H
== END 2024-12-13 23:37 | disposition home or self-care (01) ==
PROVIDERS: Student in an Organized Health Care Education/Training Program; Admitting Provider Obstetrics & Gynecology Gynecology; PCP Internal Medicine; Visit Provider Obstetrics & Gynecology Gynecology
DX: O47.03 False labor before 37 completed weeks of gestation, third trimester (principal); Z3A.29 29 weeks gestation of pregnancy; I45.89 Other specified conduction disorders; R00.0 Tachycardia, unspecified
CPT/HCPCS: 36415; 80053; 81003; 82570; 83690; 84156; 84484; 85025; 85610; 85730; 93005; G0378; G0379

== ENCOUNTER 2025-02-01 22:44 | Outpatient (CLI) | payer OTHER, SELFPAY ==
--- OUTSIDE RECORDS SUMMARY | 2025-02-01 22:54 | XMS_ITS | Clinical Summary ---
Author Organization [facility] Address [address] [place] [address] Care Team Providers Care Moccasin Sewer Name Role Phone Sam Tavarez MD Primary Care Provider [phone]- [phone] Allergies Active Allergy Reactions Criticality Noted Date Comments Latex Rash Medium 02/28/2011 Mom has the latex allergy Sulfa (Sulfonamide Antibiotics) Hives,Rash Medium 10/19/2020 Medications vit 50-uger-licsg-dh a 27mg iron- 800 mcg-250 mg capsule [...] staff should administer the PHQ-9) 2 06/07/2022 [facility] of Occupat ional Health [...] place to sleep or slept in a long term (including now)? No 06/07/2022 Prue Depression Scale Answer Date Recorded Prue Depression Scale Total 16 04/13/2021 The thought of harming myself has occurred to me . Never 04/13/2021 Personal Safety Answer Date Recorded Getting School Help Needed Not on file 08/12 Comments No Sex and Gender Information Value Date Recorded Sex Assigned at Not on file Legal Sex Female 6:53 PM BEAMER OPERATOR Gender Identity Not on file Sexual Orientation [...] N Livin g 6 8 LIVIN GRABIELON ,Spenser Bryan MD Complications:Pre eclampsia Delivery Location:[facility] Main C ampus ([facility]) Last Filed Vital Signs Vital [...] HEPATITIS C ANTIBODY Routine 03/23/2022 11:32 AM BEAMER OPERATOR Encounter for supervision of other normal in first trimester N. GONORRHOEAE/C. TRACHOMATIS AMPLIFICATION Routine 03/23/2022 11:14 AM BEAMER OPERATOR Encounter for supervision of other normal in first trimester Screening for STD (sexually transmitted disease) from Last 3 Months or Most Recently Relevant to Health Maintenance Results * Hepatitis C antibody (03/23/2022 11:32 AM BEAMER OPERATOR) Hep C Ab Nonreactive Nonreactive DOMO FRAZIER [...] on 2019. Blood 03/23/2022 11:3 2 AM BEAMER OPERATOR 03/23/2022 3:36 PM BEAMER OPERATOR Kiki RODRIGUEZ LAB MICROBIOLOGY - GENERAL OR DERABLES Final Result DOMO FRAZIER [address] [facility] Department [place] [address] * N. gonorrhoeae/C. trachomatis Amplification Vaginal (03/23/2022 11:14 AM BEAMER OPERATOR) C. trachomatis Not Detected Not Detected DOMO FRAZIER Comment:Testing performed by : [address] [address] N. gonorrhoeae Not Detected Not Detected DOMO FRAZIER Comment: Interpretive Data Testing performed by the [facility]. This assay detects Chlamydia trachomatis [...] last revised on 2019. Testing performed by: [address] [place]., [address] Vaginal (None) 03/23/2022 11 :14 AM BEAMER OPERATOR 03/23/2022 2:02 PM BEAMER OPERATOR Kiki Roberto CNM LAB MICROBIOLOGY - GENERAL OR DERABLES Final Result Performing Organization Address City/State/[facility] [place] Phone Number DOMO [address] [place] [address] from Last 3 Months or Most Recently Relevant to Health Maintenance Insurance [facility] [place] Advance Directives For more information, please contact: [phone] * Full Code (Latest Code Status on [...] n case of cardiopulmonary arrest Care Teams Moccasin Sewer Relationship Specialty Start Date End Date Sam Tavarez MD PCP - General Internal Medicine 01/04/22
--- OUTSIDE RECORDS SUMMARY | 2025-02-01 22:54 | XMS_ITS | Clinical Summary ---
Author Organization [facility] Address [address] [facility] [place] [address] Care Team Providers Care Software Test Analyst Name Role Phone Loco Cardoza DO Primary Care Provider Source Comments [facility],non-owned Affiliates and Associated Physician Practices is amultiple site organization consisting of ambulatory clinics and hospital sitesin [place], [place], [place] and [place]. This disclosure is being madepursuant to the Care Everywhere program and may not contain all information available regarding this patient. Last updated 17.[facility] Allergies Active Allergy Reactions Criticality Noted Date [...] Insurance coverage problems 07/19/2016 09/30/2017 Overview (08/21/2016): [place] with very limited acne formulary and step [...] Virus Toma valent Vaccine 03/12/2013,10/31/2012,09/05/2012 INFLUENZA A [id number] VACCINE 12/31/2008 INFLUENZA VACCINE, QUADR. (F LUZONE; [...] on file Legal Sex Female 5:41 AM RN ENT Gender Identity Not on file Sexual Orientation Not on file Last Filed Vital Signs Vital Sign Reading Time Taken Comments Blood Pressure 134/87 09/30/2018 2:12 PM CDT Pulse 89 09/30/2018 2:12 PM CDT Temperature 36.2 C (97.1 F) 09/30/2018 2:12 PM CDT Respiratory Rate 32 02/19/2017 11:15 AM RN ENT Oxygen Saturation 99% 02/19/2017 10:43 AM RN ENT Inhaled Oxygen Concentration 100% 02/19/2017 1 0:43 AM RN ENT Weight 70.8 kg (156 lb) 09/30/2018 2:12 [...] DEPRESSION SCREENING 02/12/2024 COVID-19 VACCINE (1 - 2024-2 6 season) 2024 INFLUENZA VACCINE (#1) 2024 8, [...] car Lifestyle On track( 019 9:09 AM RN ENT) Lyndsey Fraire, RN Insurance MEDICAID - OUT OF STATE [facility] MEDICAID - OUT OF [facility] [place] [address] * Guarantor: KARLEY WASSERMAN Account Type Relation to Patient Date of Phone Billing Address Personal/Family [address] [place] [id number] [place] [address] Care Teams Software Test Analyst Relationship Specialty Start Date End Date Loco Cardoza DO PCP - General 06/11/20
[2025-02-01 22:55] VITALS: BP 107/49; PULSE 136; TEMP 36.6
[2025-02-01 23:00] VITALS: BP 110/65; PULSE 130
[2025-02-01 23:15] VITALS: BP 129/71; PULSE 115
[2025-02-01 23:21] VITALS: PULSE 127; O2SAT 92
[2025-02-01 23:26] VITALS: PULSE 121; O2SAT 97
[2025-02-01 23:36] VITALS: BP 107/49; PULSE 130
== END 2025-02-01 23:42 | disposition home or self-care (01) ==
LOC: ANHOBOP 22:52 → ANHLDR 22:54
PROVIDERS: PCP Internal Medicine; Visit Provider Obstetrics & Gynecology
DX: Z34.90 Encounter for supervision of normal pregnancy, unspecified, unspecified trimester (principal); Z3A.00 Weeks of gestation of pregnancy not specified
CPT/HCPCS: 59025